=== PATIENT | female | born 1950 | race Caucasian/White ===

== ENCOUNTER 2020-03-28 07:05 | Outpatient (REF) | payer MEDICARE, OTHER, SELFPAY ==
[2020-03-28 07:35] VITALS: BMI 29.8
[2020-03-28 07:38] VITALS: BP 141/61; PULSE 94; RESP 16; TEMP 37.2; O2SAT 95
[2020-03-28 10:04] VITALS: BP 150/86; PULSE 94; RESP 16; O2SAT 94
--- NOTE | 2020-03-28 12:52 | P.OP_ITS ---
Operative Note Operative Note Narrative: Preoperative diagnosis: Lesions of upper back and chest wall Postoperative diagnosis: Same Procedure: Excision of lesions of upper back and chest wall Anesthesia: Local 1% lidocaine with epinephrine 9 cc Specimens: Lesions of upper back and of chest wall Estimated blood loss: Less than 5 cc Immediate complications: None Indications: This is a 69-year-old female who has developed symptomatic lesions on her upper mid back and left infraclavicular areas. The lesions are itchy and irritated. Their appearance is indeterminate and excision is planned. Procedure in detail: The patient initially in the prone position, time-out procedure was performed. The area of the lesion on the upper back was prepped with Betadine solution and was draped sterilely. an elliptical incision was made with the long axis oriented vertically. The incision was carried down into the subcutaneous tissues. A margin of normal-appearing skin was taken along with the lesion. Lesion was amputated at the level of the subcutaneous tissues. Bleeding was controlled with subcutaneous sutures of 3 0 Polysorb and skin was closed with interrupted sutures of for O nylon. The area was cleansed with saline solution and a light gauze dressing was applied. She then moved to the supine position. The lesion of the chest wall in the left infraclavicular area and the surrounding skin were prepped with Betadine solution and were draped sterilely. Incision lines were marked on the skin encircling the lesion with a margin of normal-appearing skin. Skin and subcutaneous tissues were infiltrated with local anesthetic. An incision was made and was carried into the subcutaneous tissues where the lesion was excised. The wound was closed with interrupted subcuticular sutures of 4 0 Polysorb. Half-inch Steri-Strips and a light adhesive dressing were applied. She immanuel ated the procedure well. She will keep the areas dry and covered for 24 hours, will use acetaminophen as needed for pain, and will follow up in the office for wound check and suture removal in about 1 week.
== END 2020-03-28 07:06 | disposition home or self-care (01) ==
LOC: HO.MS 07:05
PROVIDERS: PCP Internal Medicine; Visit Provider Surgery
DX: L57.0 Actinic keratosis (principal); L98.9 Disorder of the skin and subcutaneous tissue, unspecified
CPT/HCPCS: 11403; 12032; 11401; 88304

== ENCOUNTER → 2020-04-04 09:36 | Outpatient (BNVA) | payer MEDICARE, OTHER, SELFPAY | PROVIDERS: PCP Internal Medicine; Visit Provider Surgery | DX: Z09 Encounter for follow-up examination after completed treatment for conditions other than malignant neoplasm (principal); L82.0 Inflamed seborrheic keratosis | CPT/HCPCS: 99212 ==

== ENCOUNTER → 2020-04-25 10:13 | Outpatient (BNVA) | payer MEDICARE, OTHER, SELFPAY | PROVIDERS: PCP Internal Medicine; Referring Provider Internal Medicine; Visit Provider Surgery | DX: T81.89XA Other complications of procedures, not elsewhere classified, initial encounter (principal) | CPT/HCPCS: 99212 ==

== ENCOUNTER 2020-11-14 06:33 | Outpatient (REF) | payer MEDICARE, OTHER, SELFPAY ==
[2020-11-14 11:59] LABS: Anion Gap 14 (12-20); Blood Urea Nitrogen 21 mg/dL (9-16); Calcium 9.6 mg/dL (8.4-10.2); Carbon Dioxide 27 mmol/L (22-29); Chloride 105 mmol/L (96-108); Cholesterol 203 mg/dL; Estimated Glomerular Filt Rate > 60; Glucose Fasting 88 mg/dL (60-99); HDL Cholesterol 52 mg/dL; LDL Cholesterol Calculated 127 mg/dl; Potassium 4.4 mmol/L (3.3-5.1); Sodium 142 mmol/L (135-145); Triglycerides 123 mg/dL
[2020-11-14 12:24] LABS: Vitamin D 25-OH Total 29.6 ng/mL (>30)
== END 2020-11-14 06:34 | disposition home or self-care (01) ==
LOC: HO.HMGCLDS 06:33
PROVIDERS: PCP Internal Medicine; Visit Provider Internal Medicine
DX: I10 Essential (primary) hypertension (principal); M85.89 Other specified disorders of bone density and structure, multiple sites; Z78.0 Asymptomatic menopausal state
CPT/HCPCS: 36415; 80048; 80061; 82306

== ENCOUNTER 2020-11-19 08:03 | Outpatient (REF) | payer MEDICARE, OTHER, SELFPAY ==
--- NOTE | ~2020-11-19 | MM_ITS ---
EXAMINATION: BONE DENSITOMETRY CLINICAL INDICATION: Postmenopausal. COMPARISON: Previous BD dated 11/24/2018 and baseline BD dated 09/07/2006. TECHNIQUE: Using a [employer] DXA System (software version: 13.1) manufactured by [facility], dual-energy x-ray absorptiometry was performed of the lumbar spine and left hip. The images are of good technical quality. Summary results are attached. FINDINGS: AP SPINE L1-L4: Current: BMD 1.122 g/cm2, Z-score 0.3, T-score -0.5, normal, 6.6% increase from previous, 8.1% increase from baseline (<5% change is not significant). Prior: BMD 1.053 g/cm2. Baseline: BMD 1.038 g/cm2. LEFT FEMUR, NECK: Current: BMD 0.751 g/cm2, Z-score -1.0, T-score -2.1, osteopenia. Prior: BMD 0.796 g/cm2. Baseline: BMD 0.858 g/cm2. LEFT FEMUR, TOTAL: Current: BMD 0.764 g/cm2, Z-score -1.2, T-score -1.9, osteopenia, 4.1% decrease from previous, 13.1% decrease from baseline (<5% change is not significant). Prior: BMD 0.797 g/cm2. Baseline: BMD 0.879 g/cm2. IDENTIFIED RISK FACTORS: Menopause, history of fracture (adult). HISTORY OF FRACTURE: Wrist. Fibula. MEDICATIONS: Calcium supplements or multivitamin, vitamin D. MM/XR DEXA axial skeleton IMPRESSION: 1. DIAGNOSIS: Osteopenia based on the lowest T-score value of -2.1 in the femoral neck applying World Health Organization criteria. 2. 10-YEAR FRACTURE RISK PREDICTION, FRAX: Major osteoporotic fracture (clinical spine, forearm, hip or shoulder) 18.4%. Hip fracture 3.2%. 3. Treatment Recommendations: NOF guidelines recommend consideration for treatment in postmenopausal women and men age 50 and older presenting with the following: -A hip or vertebral (clinical or morphometric) fracture. -T-score less than or equal to -2.5 at the femoral neck or spine after appropriate evaluation to exclude secondary causes. -Low bone mass at the hip or spine and a 10-year fracture probability by FRAX of greater than or equal to 3% for hip fracture or greater than or equal to 20% for major osteoporotic fracture based on the [place] adapted WHO algorithm. 4. Other Recommendations: All treatment decisions require clinical judgment and consideration of individual patient factors, including patient preferences, comorbidities, previous drug use, risk factors not captured in the FRAX model (e.g. frailty, falls, vitamin D deficiency, increased bone turnover, interval significant decline in bone density) and possible under or overestimation of fracture risk by FRAX. Additional medical evaluation for secondary cause of low bone mineral density may be appropriate. FUTURE SCAN RECOMMENDATION: People with diagnosed cases of osteoporosis or at high risk for fracture should have regular bone mineral density tests. For patients eligible for Medicare, routine testing is allowed once every 2 years. The testing frequency can be increased to one year for patients who have rapidly progressing disease, those who are receiving or discontinuing medical therapy to restore bone mass, or have additional risk factors.
== END 2020-11-19 08:04 | disposition home or self-care (01) ==
LOC: HO.MAMMO 08:03
PROVIDERS: Visit Provider Obstetrics & Gynecology
DX: Z13.820 Encounter for screening for osteoporosis (principal); Z78.0 Asymptomatic menopausal state
CPT/HCPCS: 77080

== ENCOUNTER 2021-09-16 07:48 | Day surgery (SDC) | payer MEDICARE, OTHER, SELFPAY ==
[2021-09-10 13:34] VITALS: BMI 29.5
--- NOTE | 2021-09-15 10:13 | P.CONAN_ITS ---
Documented by User: Nneka Barboza NP 09/15/21 10:19 HPI - Anesthesia Eval Consult details Narrative: 70yo F for Colonoscopy PMFSH Active Problems Active Problems: All Active Problems (Updated 09/10/21 @ 13:30 by Concepcion Vázquez, RN) History of malignant neoplasm of both breasts (Acute) Essential hypertension (Acute) Tubular adenoma of colon (Acute) Osteoarthritis of knee (Acute) Osteopenia of multiple sites (Acute) Past Medical History Medical History (Updated 09/10/21 @ 13:30 by Concepcion Vázquez, RN) Breast cancer screening by mammogram Essential hypertension Fracture of right fibula History of malignant neoplasm of both breasts Hx of supraventricular tachycardia Infiltrating ductal carcinoma of left breast Invasive lobular carcinoma of right breast in female Osteoarthritis of knee Osteopenia of multiple sites PONV (postoperative nausea and vomiting) Routine Papanicolaou smear Tubular adenoma of colon Family History Family History Father Cancer of prostate Mother COPD (chronic obstructive pulmonary disease) Sister Breast cancer Paternal Grandmother Breast cancer Brother No problems noted. Sister No problems noted. Son No problems noted. Daughter No problems noted. Surgical History Surgical History (Updated 09/10/21 @ 13:22 by Concepcion Vázquez RN) History of lumpectomy of left breast History of lumpectomy of right breast History of lymph node dissection of left axilla History of lymph node excision Hx of colonoscopy Social History Social History Are you a primary career technical education teacher to a significant other at home: No Do you presently have visiting nurse or other home services: No Alcohol intake: never Patient Tobacco Use Status: Never used Tobacco Use of substances other than those prescribed or required for medical reasons: No Have you been hit, kicked, punched, or otherwise hurt by someone within the past year? If so, by whom?: No Are you DNR?: No Advance Directives: Yes Advance Directives Information Provided: No Advance Directives on File: Yes Advance Directives Date on File: 03/28/20 Recently lost weight without trying: No Eating poorly because of decreased appetite: No Nutrition Risks: No Nutritional Risk Meds Allergies Allergy/AdvReac Type Severity Reaction Status Date / Time oxycodone [Percocet] AdvReac Unknown nausea Verified 09/10/21 13:18 demerol AdvReac Unknown nausea Uncoded 09/10/21 13:18 Home Medications Medication Instructions Recorded Confirmed Last Taken Type calcium carbonate 600 mg-vitamin 1 tab PO DAILY 06/24/20 09/10/21 Unknown History D3 20 mcg (800 unit) chewable tablet (Caltrate 600 plus D) multivitamin 1 tab PO DAILY 06/24/20 09/10/21 Unknown History Exam Exam Date and Time: September 15, 2021 1013 Height,Weight and Vital Signs: Height 5 ft 9 in Weight 90.718 kg Assessment and Plan Assessment Anesthesia Assessment: Chart Reviewed Documented by User: Iris Smith MD 09/16/21 09:14 [facility] Past Medical History Medical History (Updated 09/10/21 @ 13:30 by Concepcion Vázquez, KAILYN) Breast cancer screening by mammogram Essential hypertension Fracture of right fibula History of malignant neoplasm of both breasts Hx of supraventricular tachycardia Infiltrating ductal carcinoma of left breast Invasive lobular carcinoma of right breast in female Osteoarthritis of knee Osteopenia of multiple sites PONV (postoperative nausea and vomiting) Routine Papanicolaou smear Tubular adenoma of colon Family History Family History Father Cancer of prostate Mother COPD (chronic obstructive pulmonary disease) Sister Breast cancer Paternal Grandmother Breast cancer Brother No problems noted. Sister No problems noted. Son No problems noted. Daughter No problems noted. Family history of problems with anesthesia: No Surgical History Surgical History (Updated 09/10/21 @ 13:22 by Concepcion Vázquez, RN) History of lumpectomy of left breast History of lumpectomy of right breast History of lymph node dissection of left axilla History of lymph node excision Hx of colonoscopy History of Problems with Anesthesia: No Social History Social History Are you a primary career technical education teacher to a significant other at home: No Do you presently have visiting nurse or other home services: No Alcohol intake: never Patient Tobacco Use Status: Never used Tobacco Use of substances other than those prescribed or required for medical reasons: No Have you been hit, kicked, punched, or otherwise hurt by someone within the past year? If so, by whom?: No Are you DNR?: No Advance Directives: Yes Advance Directives Information Provided: No Advance Directives on File: Yes Advance Directives Date on File: 03/28/20 Recently lost weight without trying: No Eating poorly because of decreased appetite: No Nutrition Risks: No Nutritional Risk Meds Allergies Allergy/AdvReac Type Severity Reaction Status Date / Time oxycodone [Percocet] AdvReac Unknown nausea Verified 09/10/21 13:18 demerol AdvReac Unknown nausea Uncoded 09/10/21 13:18 Home Medications Medication Instructions Recorded Confirmed Last Taken Type calcium carbonate 600 mg-vitamin 1 tab PO DAILY 06/24/20 09/10/21 Unknown History D3 20 mcg (800 unit) chewable tablet (Caltrate 600 plus D) multivitamin 1 tab PO DAILY 06/24/20 09/10/21 Unknown History Exam Airway Mallampati Class: II TM Dist: >3cm Neck ROM: Full Assessment and Plan Final Anesthetic Review Family History of Problems with Anesthesia: No History of Problems with Anesthesia: No NPO: Yes ASA Class: II Final Preanesthetic Review: No Changes in Pt Med Stat, Meds/Allgs Chart Reviewed, Consent Obtained/Reviewed and Anes Risks/Benef Reviewed Patient Risk: Low Procedure Risk: Low Anesthetic Plan Anesthetic Plan: MAC: Disposition: Standard PACU
[2021-09-16 07:59] VITALS: BP 143/83; PULSE 87; RESP 16; TEMP 36.4; O2SAT 96; BMI 29.5
--- NOTE | 2021-09-16 09:14 | MHC.SHP ---
Pre-Procedural Eval Section A Date of Service: 09/16/21 Section B Chief Complaint: Screening Details of Present Illness: screening, fhx polyps Relevant Family History (Specify if Yes): Yes Relevant Social History: None Present Medications: None Medical History: Significant History (see h and p no changes) History of Previous Operations: No relevant previous surgery Allergies: Allergies Allergy/AdvReac Type Severity Reaction Status Date / Time oxycodone [Percocet] AdvReac Unknown nausea Verified 09/10/21 13:18 demerol AdvReac Unknown nausea Uncoded 09/10/21 13:18 Review of Systems Sugical H&P ROS: Negative: Constitution, Cardiovascular, Respiratory, Neurological, Psychiatric, Hem-Onc, Allergic/Immunologic, Gastrointestinal, Genitourinary, Musculoskeletal, Integumentary, Endocrine and Eyes/Ears/Nose/Throat Exam Surgical H&P Exam: Normal: HEENT, Normal: Heart, Normal: Lungs, Normal: Extremities, Normal: Abdomen, Normal: Skin and Normal: Neurological Plan I have reviewed the history and physical and performed a pertinent physical examination on my patient. No changes have occurred unless specified.
[2021-09-16] MEDS: Scopolamine 1.5 MG PATCH.TD.3 EAR-BEHIND (09:18)
[2021-09-16] MEDS: Lactated Ringers 1,000 ML 100 ML IVCONT (09:19)
--- NOTE | 2021-09-16 09:52 | P.BOP_ITS ---
Brief Operative Note Date of Service: 09/16/21 Pre-op diagnosis: screening Post-op diagnosis: same (colon polyps) Procedure: colonosocpy Surgeon: Jozef Leija Anesthesia: MAC Was an Otr Owner Operator used for this Procedure?: No Estimated blood loss (mL): 5 Pathology: other (see path req) Condition: stable Disposition: PACU
[2021-09-16 09:55] VITALS: BP 95/48; PULSE 82; RESP 14; TEMP 36.6; O2SAT 96
[2021-09-16 10:10] VITALS: BP 133/61; PULSE 84; RESP 20; TEMP 36.1; O2SAT 97
--- NOTE | 2021-09-16 10:44 | OP_ITS ---
SURGEON: Jozef Leija MD INDICATIONS: Colon cancer screening and prior history of adenomatous colon polyps. PREOPERATIVE DIAGNOSIS: POSTOPERATIVE DIAGNOSIS: PROCEDURE PERFORMED: ESTIMATED BLOOD LOSS: COMPLICATIONS: ANESTHESIA: ASSISTANTS: SPECIMENS: PROCEDURE: Colonoscopy to the terminal ileum with biopsy and snare polypectomy. MEDICATIONS: Monitored anesthesia care. DESCRIPTION OF PROCEDURE: History and physical performed. The risks and benefits of the procedure were explained to the patient. Informed consent was obtained. The patient was placed in left lateral decubitus position. A digital rectal exam was performed and was found to be normal. The Olympus pediatric videocolonoscope was introduced into the rectum and advanced to the cecum without difficulty. The cecum was identified by transillumination, palpation, and identification of ileocecal valve. Examination was performed. The scope was removed. She tolerated the procedure well and was taken to recovery area in stable condition. FINDINGS: The terminal ileum was normal. Visualized colonic mucosa was normal. In the cecum, there was a less than 5 mm sessile polyp, which was removed with biopsy forceps. At 40 cm, was a less than 10 mm polyp, which was snared. Two polyps at 20 cm were removed, 1 with biopsy forceps and 1 with a cold snare. All measured less than 10 mm. The ileocecal valve appeared somewhat prominent and biopsies were obtained. No definite polyp was identified at the level of the ileocecal valve. Retroflexed examination showed moderate-sized internal hemorrhoids. The quality of the prep was good. IMPRESSION: Colon polyps. RECOMMENDATION: Follow up biopsy results. MD MAULIK Diamond/MODL / [id number] MTDD
== END 2021-09-16 10:26 | disposition home or self-care (01) ==
PROVIDERS: PCP Internal Medicine; Visit Provider Internal Medicine Gastroenterology
PROC: 0DJD8ZZ Inspection of Lower Intestinal Tract, Via Natural or Artificial Opening Endoscopic (ICD-10-PCS; CPT 45378; principal; 2021-09-16 08:50)
DX: Z12.11 Encounter for screening for malignant neoplasm of colon (principal); Z86.010 Personal history of colon polyps; D12.0 Benign neoplasm of cecum; K63.5 Polyp of colon; K64.8 Other hemorrhoids; K21.9 Gastro-esophageal reflux disease without esophagitis; I10 Essential (primary) hypertension; M85.80 Other specified disorders of bone density and structure, unspecified site; Z79.1 Long term (current) use of non-steroidal anti-inflammatories (NSAID); Z79.899 Other long term (current) drug therapy; Z85.3 Personal history of malignant neoplasm of breast; Z88.8 Allergy status to other drugs, medicaments and biological substances
CPT/HCPCS: 45385; 45380; 88305

== ENCOUNTER 2021-10-30 06:28 | Outpatient (REF) | payer MEDICARE, OTHER, SELFPAY ==
[2021-10-30 11:37] LABS: Alanine Aminotransferase 18 U/L (0-31); Anion Gap 13 (12-20); Aspartate Amino Transferase 16 U/L (5-31); Blood Urea Nitrogen 17 mg/dL (9-16); Calcium 9.6 mg/dL (8.4-10.2); Carbon Dioxide 26 mmol/L (22-29); Chloride 108 mmol/L (96-108); Cholesterol 195 mg/dL; Estimated Glomerular Filt Rate > 60; Glucose Fasting 112 mg/dL (60-99); HDL Cholesterol 47 mg/dL; LDL Cholesterol Calculated 129 mg/dl; Potassium 4.5 mmol/L (3.3-5.1); Sodium 142 mmol/L (135-145); Triglycerides 99 mg/dL
== END 2021-10-30 06:29 | disposition home or self-care (01) ==
LOC: HO.HMGCLDS 06:28
PROVIDERS: Visit Provider Internal Medicine
DX: I10 Essential (primary) hypertension (principal); M85.89 Other specified disorders of bone density and structure, multiple sites; N95.9 Unspecified menopausal and perimenopausal disorder; Z86.39 Personal history of other endocrine, nutritional and metabolic disease
CPT/HCPCS: 36415; 80048; 80061; 82306; 84450; 84460

== ENCOUNTER 2022-10-30 06:54 | Outpatient (REF) | payer BC, SELFPAY ==
[2022-10-30 12:01] LABS: Alanine Aminotransferase 12 U/L (0-31); Aspartate Amino Transferase 14 U/L (5-31); Cholesterol 194 mg/dL; HDL Cholesterol 49 mg/dL; LDL Cholesterol Calculated 118 mg/dl; Triglycerides 135 mg/dL
[2022-10-30 12:18] LABS: Vitamin D 25-OH Total 42.9 ng/mL (>30)
== END 2022-10-30 06:55 | disposition home or self-care (01) ==
LOC: HO.HMGCLDS 06:54
PROVIDERS: PCP Internal Medicine; Visit Provider Internal Medicine
DX: I10 Essential (primary) hypertension (principal); M85.89 Other specified disorders of bone density and structure, multiple sites; N95.9 Unspecified menopausal and perimenopausal disorder; Z86.39 Personal history of other endocrine, nutritional and metabolic disease
CPT/HCPCS: 36415; 80061; 82306; 84450; 84460

== ENCOUNTER 2022-11-20 08:30 | Outpatient (REF) | payer BC, SELFPAY ==
--- NOTE | ~2022-11-20 | MM_ITS ---
EXAMINATION: BONE DENSITOMETRY CLINICAL INDICATION: Postmenopausal. COMPARISON: Previous BD dated 11/05/2016 and baseline BD dated 09/07/2006. TECHNIQUE: Using a [employer] DXA System (software version: 13.1) manufactured by [employer], dual-energy x-ray absorptiometry was performed of the lumbar spine and right hip. The images are of good technical quality. Summary results are attached. FINDINGS: AP SPINE L1-L4: Current: BMD 1.088 g/cm2, Z-score 0.0, T-score -0.8, normal, 3.0% decrease from previous, 4.8% increase from baseline (<5% change is not significant). Prior 11/19/2020: BMD 1.122 g/cm2. Baseline: BMD 1.038 g/cm2. RIGHT FEMUR, NECK: Current: BMD 0.682 g/cm2, Z-score -1.4, T-score -2.6, osteoporosis. Prior: BMD 0.767 g/cm2. Baseline: BMD 0.775 g/cm2. RIGHT FEMUR, TOTAL: Current: BMD 0.770 g/cm2, Z-score -1.0, T-score -1.9, osteopenia, 0.9% increase from previous, 7.7% decrease from baseline (<5% change is not significant). Prior: BMD 0.763 g/cm2. Baseline: BMD 0.834 g/cm2. IDENTIFIED RISK FACTORS: Menopause, history of fracture (adult). HISTORY OF FRACTURE: Wrist, tibia. MEDICATIONS: Calcium, vitamin D. MM/XR DEXA axial skeleton IMPRESSION: 1. DIAGNOSIS: Osteoporosis based on the lowest T-score value of -2.6 in the femoral neck applying World Health Organization criteria. 2. 10-YEAR FRACTURE RISK PREDICTION, FRAX: According to the guidelines, FRAX calculation should only be performed on patients in the osteopenia bone density category. Therefore, FRAX was not performed on this patient. 3. Treatment Recommendations: NOF guidelines recommend consideration for treatment in postmenopausal women and men age 50 and older presenting with the following: -A hip or vertebral (clinical or morphometric) fracture. -T-score less than or equal to -2.5 at the femoral neck or spine after appropriate evaluation to exclude secondary causes. -Low bone mass at the hip or spine and a 10-year fracture probability by FRAX of greater than or equal to 3% for hip fracture or greater than or equal to 20% for major osteoporotic fracture based on the [place] adapted WHO algorithm. 4. Other Recommendations: All treatment decisions require clinical judgment and consideration of individual patient factors, including patient preferences, comorbidities, previous drug use, risk factors not captured in the FRAX model (e.g. frailty, falls, vitamin D deficiency, increased bone turnover, interval significant decline in bone density) and possible under or overestimation of fracture risk by FRAX. Additional medical evaluation for secondary cause of low bone mineral density may be appropriate. FUTURE SCAN RECOMMENDATION: People with diagnosed cases of osteoporosis or at high risk for fracture should have regular bone mineral density tests. For patients eligible for Medicare, routine testing is allowed once every 2 years. The testing frequency can be increased to one year for patients who have rapidly progressing disease, those who are receiving or discontinuing medical therapy to restore bone mass, or have additional risk factors.
== END 2022-11-20 08:31 | disposition home or self-care (01) ==
LOC: HO.MAMMO 08:30
PROVIDERS: PCP Internal Medicine; Visit Provider Obstetrics & Gynecology
DX: Z13.820 Encounter for screening for osteoporosis (principal); Z78.0 Asymptomatic menopausal state; M85.80 Other specified disorders of bone density and structure, unspecified site
CPT/HCPCS: 77080

== ENCOUNTER 2023-01-08 13:46 | Outpatient (AMB) | payer BC, SELFPAY ==
--- NOTE | 2023-01-08 13:43 | A.OFFPC_ITS ---
Intake Visit Reasons: discuss fosamax I phone [phone] ok 2pm Intake Note: Ptis having a telehealth visit to discuss rx for fosamax Allergies oxycodone [Percocet] Adverse Reaction (Unknown, Verified 01/08/23 14:40) nausea demerol Adverse Reaction (Unknown, Uncoded 01/08/23 14:40) nausea Medication List - Last Reconciled 01/08/23 by Kymberly Sanchez MD atenolol 25 mg PO DAILY calcium carbonate-vitamin D3 600 mg-20 mcg (800 unit) (Caltrate 600 plus D) 1 tab PO DAILY cholecalciferol (vitamin D3) 50 mcg PO DAILY ibuprofen 800 mg PO BID PRN Tobacco use date assessed: 01/08/23 Fall risk assessment: No Falls in past year Last assessed Fall Risk: 01/08/23 Dental Screening Dental Screen Date: 01/08/23 Did you have a dental visit in the last 12 months?: Yes Did you have a dental problem in the last 6 months where you did not have access to dental care?: No Was dental information given to patient?: Patient has dentist HPI discuss fosamax I phone [phone] ok 2pm HPI Details 72-year-old lady with history of hypertension history of breast cancer bilateral, osteoarthritis and history of fibular fracture in 2014, here today to discuss results of recent bone density scan. Which showed normal bone density in her lumbar spine, and presence of osteoporosis in right femur neck with a T- score of -2.6, and osteopenia in right total femur with a T-score of -1.9. She had discussed results also with her OBGYN Dr. Ornelas who states that patient may or may no start definitive treatment at present time, patient is also has an since starting any medications, and would like to just continue with lifestyle modification and taking her supplements as directed. [facility] Medical History (Updated 01/08/23 @ 17:00 by Kymberly Sanchez MD) Breast cancer screening by mammogram Essential hypertension Fracture of right fibula History of malignant neoplasm of both breasts History of vitamin D deficiency Hx of supraventricular tachycardia Infiltrating ductal carcinoma of left breast Invasive lobular carcinoma of right breast in female Osteoarthritis of left hip Osteopenia of multiple sites Osteoporosis PONV (postoperative nausea and vomiting) Routine Papanicolaou smear Tinnitus of right ear Tubular adenoma of colon Surgical History History of lumpectomy of left breast History of lumpectomy of right breast History of lymph node dissection of left axilla History of lymph node excision Hx of colonoscopy S/P total left hip arthroplasty Family History Father Cancer of prostate Mother COPD (chronic obstructive pulmonary disease) Sister Breast cancer Paternal Grandmother Breast cancer Brother No problems noted. Sister No problems noted. Son No problems noted. Daughter No problems noted. Social History Housing: House Are you a primary insurance healthcare consultant to a significant other at home: No Do you presently have visiting nurse or other home services: No Alcohol intake: never Patient Tobacco Use Status: Never used Tobacco e-Cigarette/Vaping Use: Never Used Advance Directives Date on File: 03/28/20 Current occupational status: retired Cognitive needs: No Hearing needs: No Vision needs: No Questionnaire Thrive Questionnaire Date Thrive assessed: 10/26/22 TONY-7 AMB Questionnaire TONY-7 Date TONY - 7 assessed: 10/26/22 Source: Developed by Drs. Jake Christianson, Michelle Lundy, Hipolito Aguiar and colleagues, with an educational rai from [employer] Review of Systems Const All systems reviewed & are unremarkable except as noted in HPI and below Physical exam (Primary Care) Tobacco/Smoking Status: Tobacco use Status Tobacco use date assessed 01/08/23 01/08/23 13:45 Patient Tobacco Use Status Never used Tobacco 01/08/23 13:45 e-Cigarette/Vaping Use Never Used 01/08/23 13:45 Thrive Assessment: Date of Thrive Assessment Date Thrive assessed 10/26/22 01/08/23 13:45 Telehealth Telehealth Location of provider rendering services: practice address Location of patient: address on file Patient Identification confirmed using: Name, : Yes Telehealth method: video Patient verbally consented to treatment: Yes Patient verbally consented to billing insurance company: Yes Patient informed of any privacy concerns related to visit: Yes Minutes spent on Phone/Video with Pt.: 15 Assessment and Plan Assessment & Plan (1) Osteoporosis: Code(s): M81.0 - Age-related osteoporosis without current pathological fracture Plan: Patient opts to hold off on getting any medication at present time, in the meantime will just continue taking her calcium and vitamin-D 3 supplements. Advised to start doing regular weight-bearing exercises to prevent further bone loss, and will repeat another bone density scan in 2 years Coding Level of Care Code Tele Est Pt Level 3 (79940) Diagnoses Osteoporosis M81.0
== END 2023-01-08 17:00 | disposition home or self-care (01) ==
LOC: HO.HMGC 13:46
PROVIDERS: PCP Internal Medicine; Visit Provider Internal Medicine
DX: M81.0 Age-related osteoporosis without current pathological fracture (principal)
CPT/HCPCS: 99213

== ENCOUNTER 2023-05-12 08:41 | Outpatient (AMB) | payer BC, SELFPAY ==
--- NOTE | 2023-05-12 08:43 | A.OFFVIS_ITS ---
Intake Vital Signs 05/12/23 08:46 Height 5 ft 9 in Weight 207 lb 2 oz BMI 30.6 BP 140/86 H Blood Pressure Location Rt brachial Position Sitting Pulse 84 Pulse Source Pulse Oximeter Pulse Oximetry (%) 95 Oxygen Delivery Method Room Air Intake Visit Reasons: SAWV [id number] Allergies oxycodone [Percocet] Adverse Reaction (Unknown, Verified 05/12/23 14:37) nausea demerol Adverse Reaction (Unknown, Uncoded 05/12/23 14:37) nausea Medication List - Last Reconciled 05/12/23 by Kymberly Sanchez MD acetaminophen ER (Tylenol Arthritis Pain) 650 mg PO Q8H PRN atenolol 25 mg PO DAILY calcium carbonate-vitamin D3 600 mg-20 mcg (800 unit) (Caltrate 600 plus D) 1 tab PO DAILY cholecalciferol (vitamin D3) 50 mcg PO DAILY HPI SAWV [id number] HPI Details SWV ? 72-year-old lady with history of bilateral breast cancers status post radiotherapy, has hypertension, history of tubular adenoma of colon, and osteopenia in her right femoral neck and right femur, presents today for her subsequent annual wellness visit . She is up-to-date with her screening mammogram done 05/07/2022 at [facility], due again this year. She goes to Dr. Diaz for routine Pap and pelvic exam, last Pap smear was done 09/17/2020 with negative findings. Last bone density scan was done , ordered by Dr. Ornelas, 11/20/2022 which showed normal bone density lumbar spine and osteoporosis in right femoral neck and right femur. She had her last colonoscopy done 09/16/[address] Leija with removal of tubular adenoma, due for recheck in 2026 . She had a normal fasting lipid panel and fasting sugar check done 10/30/2022 She is up-to-date with her flu shot, COVID boosters, pneumonia vaccine and Shingrix vaccination. Does not want to get the RSV vaccine ? Medical / Social History Reviewed? Past Medical History ?Yes . ? [place] of Care / Care Team list updated ?Yes . ? Surgical/Hospitalization History ?Yes . ? Current Medications (including OTC and supplements) ?Yes . ? Family History ?Yes . ? Tobacco Control form ?Yes . ? AUDIT-C (Alcohol use) form ?Yes . ? Illicit drug use in Social History ?Yes . ? Current diagnosis of depression? ?No ? Appropriate PHQ2/PHQ9 completed ?Yes . ? Data entered by ?Fiscal Technician and reviewed by provider ? Fall Risk ? Fall History? Have you had any falls with injury in the past year? ?No . ? Have you had two or more falls in the past year? ?No . ? Fall Risk Assessment: ?No falls in the past year . ? HRA filled out by the patient, reviewed by Provider and scanned. ? IPPE/AWV ? Balance? Romberg ?Yes . ? Tandem walk ?Yes . ? Walk and Turn ?Yes . ? Rise from sit to stand ?Yes . ?Vision? Corrective lens ?not ? Vision screen ? Up-to-date, goes to [facility], has beginning cataracts ?Hearing? Whisper test ?pass . ?Written Plan?Completed. See Patient Documents.? [facility] Medical History (Updated 07/05/23 @ 05:31 by Kymberly Sanchez MD) Osteoporosis History of vitamin D deficiency Tinnitus of right ear Osteoarthritis of left hip PONV (postoperative nausea and vomiting) Hx of supraventricular tachycardia Essential hypertension Breast cancer screening by mammogram Routine Papanicolaou smear Tubular adenoma of colon Fracture of right fibula Invasive lobular carcinoma of right breast in female Infiltrating ductal carcinoma of left breast History of malignant neoplasm of both breasts Surgical History S/P total left hip arthroplasty Hx of colonoscopy History of lymph node dissection of left axilla History of lymph node excision History of lumpectomy of left breast History of lumpectomy of right breast Family History Father Cancer of prostate Mother COPD (chronic obstructive pulmonary disease) Sister Breast cancer Paternal Grandmother Breast cancer Brother No problems noted. Sister No problems noted. Son No problems noted. Daughter No problems noted. Social History Housing: House Are you a primary career technology teacher to a significant other at home: No Do you presently have visiting nurse or other home services: No Alcohol intake: never Patient Tobacco Use Status: Never used Tobacco e-Cigarette/Vaping Use: Never Used Advance Directives Date on File: 03/28/20 Current occupational status: retired Cognitive needs: No Hearing needs: No Vision needs: No Questionnaire Medicare Wellness Checkup [age] What gender do you identify with?: female During the past 4 weeks, how much have you been bothered by emotional problems such as feeling anxious, depressed, irritable, sad or downhearted, and blue?: not at all During the past 4 weeks, has your physical & emotional health limited your social activities with family, friends, neighbors, or groups?: not at all During the past 4 weeks, how much bodily pain have you generally had?: very mild pain During the past 4 weeks, was someone available to help you if you needed & wanted help?: yes, as much as I wanted During the past 4 weeks, what was the hardest physical activity you could do for at least 2 minutes?: heavy Can you get to places out of walking distance without help? (For eg., can you travel alone on buses, taxis or drive your car?): Yes Can you go shopping for groceries or clothes without someone's help?: Yes Can you prepare your own meals?: Yes Can you do your housework without help?: Yes Because of any health problems, do you need the help of another person with your personal care needs such as eating, bathing, dressing or getting around the house?: No Can you handle your own money without help?: Yes During the past 4 weeks, how would you rate your health in general?: very good During the past 4 weeks how have things been going for you?: very well; could hardly better Are you having difficulties driving your car?: no Do you always fasten your seat belt when you are in a car?: yes, usually During past 4 weeks, have you been bothered by the following: never: Falling or dizzy when standing up, Sexual problems?, Trouble eating well?, Teeth or denture problems?, Problems using the telephone? and Tiredness or fatigue? Have you fallen 2 or more times in the past year?: No Are you afraid of falling?: No Are you a smoker?: no During the past 4 weeks, how many drinks of wine, beer, or other alcoholic beverages did you have?: no alcohol at all Do you exercise for about 20 minutes 3 or more times a week?: yes, some of the time Have you been given information to help with the following?: yes: Hazards in your house that might hurt you? and yes: Keeping track of your medications? How often do you have trouble taking medicines the way you have been told to take them?: I always take medicine as prescribed How confident are you that you can control & manage most of your health problems?: very confident What is your race?: White Mini Mental State Exam (MMSE) Orientation What is the (year) (season) (date) (day) (month)?: year (2022), season (Fall), date (05/12/2023), day (Wednesday) and month (May) Where are we (state) (county) (town or city) (hospital) (floor)?: state ([place]), county ([place]), town or city ([place]) and hospital/clinic ([facility]) Score Score: 9 Activity of Daily Living Bathing - sponge bath, tub bath or shower: receives no assistance (gets in/out by self, if usual bathing means Dressing - getting clothes from closets & drawers, including inner/outer garments & fasteners.: gets clothes & gets completely dressed without help Toileting - going to the 'toilet room' for urine/bowel elimination & cleaning self/arranging clothes: goes to toilet room, cleans self, arranges clothes without help Transfer: moves in & out of bed and chair without help (may use support object) Continence: controls urination/bowel movements completely by self Feeding: feeds self without help Total Score: 0 Information obtained from: patient Using telephone: independent Traveling: independent Shopping: independent Preparing meals: independent Housework: independent Taking medicine: independent Managing money: independent PHQ-9 Over the last 2 weeks, how often have you been bothered by any of the following problems? 1. Little interest or pleasure in doing things: not at all 2. Feeling down, depressed, or hopeless: not at all 3. Trouble falling or staying asleep, or sleeping too much: not at all 4. Feeling tired or having little energy: not at all 5. Poor appetite or overeating: not at all 6. Feeling bad about yourself - or that you are a failure or have let yourself or your family down: not at all 7. Trouble concentrating on things, such as reading the newspaper or watching television: not at all 8. Moving or speaking so slowly that other people could have noticed. Or the opposite - being so fidgety or restless that you have been moving around a lot more than usual: not at all 9. Thoughts that you would be better off or of hurting yourself in some way: not at all Total score: 0 Depression Screening Interpretation: Negative Depression Screening Done: Yes 95277 - PHQ-9 Billing: Yes Source: Developed by Drs. Jake Christianson, Michelle Lundy, Hipolito Aguiar and colleagues, with an educational rai from [employer]. Physical Exam Vital Signs: Last Vital Signs Pulse 84 05/12/23 08:46 BP 140/86 H 05/12/23 08:46 Pulse Ox 95 05/12/23 08:46 Oxygen Delivery Method Room Air 05/12/23 08:46 BMI result Body Mass Index 30.6 Assessment & Plan Assessment & Plan (1) Encounter for subsequent annual wellness visit (AWV) in Medicare patient: Code(s): Z00.00 - Encounter for general adult medical examination without abnormal findings Plan: Medical wellness checklist reviewed, discussed with patient and updated. Copy given back to her (2) Essential hypertension: Code(s): I10 - Essential (primary) hypertension Plan: Continue atenolol 25 mg daily (3) Tubular adenoma of colon: Comment: done by Dr. Wetzel 2016 showed presence of tubular adenoma, repeat in 5 yearsl repeat colonoscopy done by Dr. Leija 09/16/2021 again showed presence of a tubular adenoma and 2 hyperplastic polyps Code(s): D12.6 - Benign neoplasm of colon, unspecified Plan: Up-to-date with her screening colonoscopy due again in [address] Leija (4) Osteoporosis: Comment: 2022 bone density scan showed osteoporosis in right femur neck, ordered by Dr. Ornelas Code(s): M81.0 - Age-related osteoporosis without current pathological fracture Plan: Followed by a her OBGYN Dr. Ornelas . Currently on calcium and vitamin-D supplement Quality Reporting (2019) Depression/Bipolar (159/160/161/177) PHQ-9: Total score: 0 Coding Level of Care Code Medicare Subsequent (G0439) Diagnoses Encounter for subsequent annual wellness visit (AWV) in Medicare patient Z00.00 Essential hypertension I10 Tubular adenoma of colon D12.6 Osteoporosis M81.0 CPT Codes Advance Care Planning - Advance Care Planning discussion: On file, no changes ([id number]) Advance Care Planning - Time spent: 1-15 minutes, on File ([id number]) Advance Care Planning Advance Care Planning discussion: On file, no changes Date of discussion: 05/12/23 Who was present: patient Forms completed: Health Care Proxy and MOLST Time spent: 1-15 minutes, on File Actual minutes spent: 15
[2023-05-12 08:46] VITALS: BP 140/86; PULSE 84; O2SAT 95; BMI 30.6
== END 2023-05-12 09:46 | disposition home or self-care (01) ==
LOC: HO.HMGC 08:41
PROVIDERS: PCP Internal Medicine; Visit Provider Internal Medicine
DX: Z00.00 Encounter for general adult medical examination without abnormal findings (principal); I10 Essential (primary) hypertension; D12.6 Benign neoplasm of colon, unspecified; M81.0 Age-related osteoporosis without current pathological fracture
CPT/HCPCS: 1123F; G0439

== ENCOUNTER 2023-10-11 08:17 | Outpatient (AMB) | payer BC, SELFPAY ==
--- NOTE | 2023-10-11 08:13 | A.OFFPC_ITS ---
<Statement entered by Kymberly Sanchez MD - 10/11/24 15:30> This note has been administratively?closed. Vital Signs 10/11/23 08:28 Height 5 ft 9 in Weight 206 lb 4 oz BMI 30.5 BP 125/80 Blood Pressure Location Rt brachial Position Sitting Pulse 85 Pulse Source Pulse Oximeter Pulse Oximetry (%) 97 Oxygen Delivery Method Room Air Intake Visit Reasons: PE Intake Note: Pt is here today for her annual physical. Last mammogram 05/07/23 Last bone density 11/20/22 Last colonoscopy 09/16/21 Last flu shot 03/09/22 Allergies oxycodone [Percocet] Adverse Reaction (Unknown, Verified 10/11/23 08:30) nausea demerol Adverse Reaction (Unknown, Uncoded 05/12/23 14:37) nausea Tobacco use date assessed: 10/11/23 Fall risk assessment: No Falls in past year Last assessed Fall Risk: 10/11/23 Dental Screening Dental Screen Date: 10/11/23 Did you have a dental visit in the last 12 months?: Yes Did you have a dental problem in the last 6 months where you did not have access to dental care?: No Was dental information given to patient?: Patient has dentist [facility] Medical History (Updated 10/11/23 @ 09:26 by Kymberly Sanchez MD) Impaired fasting glucose Osteoporosis History of vitamin D deficiency Tinnitus of right ear Osteoarthritis of left hip PONV (postoperative nausea and vomiting) Hx of supraventricular tachycardia Essential hypertension Breast cancer screening by mammogram Routine Papanicolaou smear Tubular adenoma of colon Fracture of right fibula Invasive lobular carcinoma of right breast in female Infiltrating ductal carcinoma of left breast History of malignant neoplasm of both breasts Surgical History S/P total left hip arthroplasty Hx of colonoscopy History of lymph node dissection of left axilla History of lymph node excision History of lumpectomy of left breast History of lumpectomy of right breast Family History Father Cancer of prostate Mother COPD (chronic obstructive pulmonary disease) Sister Breast cancer Paternal Grandmother Breast cancer Brother No problems noted. Sister No problems noted. Son No problems noted. Daughter No problems noted. Social History Housing: House Are you a primary health care technician to a significant other at home: No Do you presently have visiting nurse or other home services: No Alcohol intake: never Patient Tobacco Use Status: Never used Tobacco e-Cigarette/Vaping Use: Never Used Advance Directives Date on File: 03/28/20 service: No Current occupational status: retired Cognitive needs: No Hearing needs: No Vision needs: No Questionnaire PHQ-9 Over the last 2 weeks, how often have you been bothered by any of the following problems? 73613 - PHQ-9 Billing: Patient declined-do not bill Source: Developed by Drs. Jake Christianson, Michelle Lundy, Hipolito Aguiar and colleagues, with an educational rai from [employer]. Thrive Questionnaire Date Thrive assessed: 10/11/23 I am a: Patient What is your living situation today?: I have a steady place to live Within the past 12 months, did the food you bought not last and you didn't have the money to get more?: Never true Within the past 12 months, did you worry whether your food would run out before you got money to buy more?: Never true Do you have trouble paying for medicines?: No Do you have trouble getting transportation to medical appointments?: No Do you have trouble paying your heating and electricity bill?: No Do you have trouble taking care of your child, family member or friend?: No Do you have trouble with day-to-day activities such as bathing, preparing meals, shopping, managing finances, etc.?: No Are you currently unemployed and looking for a job?: No Are you interested in more education?: No Please select the resources that you would like help with: None Currently or been in a relationship where the following occur: no concerns reported THRIVE Score: 0 AUDIT C Alcohol Use Questionnaire (AUDIT-C) 1. How often do you have a drink containing alcohol?: Never 3. How often do you have six or more drinks on one occasion?: Never Total Score: 0 Score Reviewed/Action Taken: Yes TONY-7 AMB Questionnaire TONY-7 Date TONY - 7 assessed: 10/11/23 Source: Developed by Michelle Munguia, Hipolito Aguiar and colleagues, with an educational rai from [employer] Review of Systems Eyes Details: sees [facility] Physical exam (Primary Care) Vital Signs: Last Vital Signs Pulse 85 10/11/23 08:28 BP 154/80 H 10/11/23 08:28 Pulse Ox 97 10/11/23 08:28 Oxygen Delivery Method Room Air 10/11/23 08:28 BMI result Body Mass Index 30.5 Tobacco/Smoking Status: Tobacco use Status Tobacco use date assessed 10/11/23 10/11/23 08:32 Patient Tobacco Use Status Never used Tobacco 10/11/23 08:13 e-Cigarette/Vaping Use Never Used 10/11/23 08:13 Thrive Assessment: Date of Thrive Assessment Date Thrive assessed 10/11/23 10/11/23 08:32 Currently or been in a relationship where the following occur: no concerns reported Assessment and Plan Assessment & Plan (1) Osteoporosis: Comment: 2022 bone density scan showed osteoporosis in right femur neck, ordered by Dr. Ornelas Code(s): M81.0 - Age-related osteoporosis without current pathological fracture Qualifiers: Osteoporosis type: age-related Presence of current pathological fracture: without current pathological fracture Qualified Code(s): M81.0 - Age- related osteoporosis without current pathological fracture (2) Essential hypertension: Code(s): I10 - Essential (primary) hypertension (3) Impaired fasting glucose: Code(s): R73.01 - Impaired fasting glucose (4) Tubular adenoma of colon: Comment: done by Dr. Wetzel 2016 showed presence of tubular adenoma, repeat in 5 yearsl repeat colonoscopy done by Dr. Leija 09/16/2021 again showed presence of a tubular adenoma and 2 hyperplastic polyps Code(s): D12.6 - Benign neoplasm of colon, unspecified (5) History of malignant neoplasm of both breasts: Code(s): Z85.3 - Personal history of malignant neoplasm of breast Orders: Orders Hemoglobin A1c Today D12.6 - Benign neoplasm of colon, unspecified, I10 - Essential (primary) hypertension, M81.0 - Age-related osteoporosis without current pathological fracture, R73.01 - Impaired fasting glucose, Z85.3 - Personal history of malignant neoplasm of breast, Z86.39 - Personal history of other endocrine, nutritional and metabolic disease Basic Metabolic Panel Fasting Today D12.6 - Benign neoplasm of colon, unspe cified, I10 - Essential (primary) hypertension, M81.0 - Age-related osteoporosis without current pathological fracture, R73.01 - Impaired fasting glucose, Z85.3 - Personal history of malignant neoplasm of breast, Z86.39 - Personal history of other endocrine, nutritional and metabolic disease Hemoglobin and Hematocrit Today D12.6 - Benign neoplasm of colon, unspecified, I10 - Essential (primary) hypertension, M81.0 - Age-related osteoporosis without current pathological fracture, R73.01 - Impaired fasting glucose, Z85.3 - Personal history of malignant neoplasm of breast, Z86.39 - Personal history of other endocrine, nutritional and metabolic disease Lipid Panel Today D12.6 - Benign neoplasm of colon, unspecified, I10 - Essential (primary) hypertension, M81.0 - Age-related osteoporosis without current pathological fracture, R73.01 - Impaired fasting glucose, Z85.3 - Personal history of malignant neoplasm of breast, Z86.39 - Personal history of other endocrine, nutritional and metabolic disease Alanine Aminotransferase Today D12.6 - Benign neoplasm of colon, unspecified, I10 - Essential (primary) hypertension, M81.0 - Age-related osteoporosis without current pathological fracture, R73.01 - Impaired fasting glucose, Z85.3 - Personal history of malignant neoplasm of breast, Z86.39 - Personal history of other endocrine, nutritional and metabolic disease Aspartate Amino Transferase Today D12.6 - Benign neoplasm of colon, unspecified, I10 - Essential (primary) hypertension, M81.0 - Age-related osteoporosis without current pathological fracture, R73.01 - Impaired fasting glucose, Z85.3 - Personal history of malignant neoplasm of breast, Z86.39 - Personal history of other endocrine, nutritional and metabolic disease Vitamin D 25-OH Total Today D12.6 - Benign neoplasm of colon, unspecified, I10 - Essential (primary) hypertension, M81.0 - Age-related osteoporosis without current pathological fracture, R73.01 - Impaired fasting glucose, Z85.3 - Personal history of malignant neoplasm of breast, Z86.39 - Personal history of other endocrine, nutritional and metabolic disease Medications: New scopolamine base 1 patch transdermal Q3D PRN 4 ea 0RF nausea and vomiting Coding Level of Care Code Est Pt Prev Care >65y(09976) Diagnoses Age-related osteoporosis without current pathological fracture M81.0 Osteoporosis type: age-related Presence of current pathological fracture: without current pathological fracture Essential hypertension I10 Impaired fasting glucose R73.01 Tubular adenoma of colon D12.6 History of malignant neoplasm of both breasts Z85.3
[2023-10-11 08:28] VITALS: BP 125/80; PULSE 85; O2SAT 97; BMI 30.5
== END 2023-10-11 09:51 | disposition home or self-care (01) ==
PROVIDERS: PCP Internal Medicine; Visit Provider Internal Medicine
DX: M81.0 Age-related osteoporosis without current pathological fracture (principal); I10 Essential (primary) hypertension; R73.01 Impaired fasting glucose; D12.6 Benign neoplasm of colon, unspecified; Z85.3 Personal history of malignant neoplasm of breast
CPT/HCPCS: 99499

== ENCOUNTER 2023-10-21 06:06 | Outpatient (REF) | payer BC, SELFPAY ==
[2023-10-21 10:20] LABS: Hematocrit 44.6 % (37.0-47.0)
[2023-10-21 10:58] LABS: Alanine Aminotransferase 13 U/L (0-31); Anion Gap 12 (12-20); Aspartate Amino Transferase 15 U/L (5-31); Blood Urea Nitrogen 19 mg/dL (9-16); Calcium 9.5 mg/dL (8.4-10.2); Carbon Dioxide 27 mmol/L (22-29); Chloride 108 mmol/L (96-108); Cholesterol 186 mg/dL (<200); Estimated Glomerular Filt Rate > 60; Glucose Fasting 102 mg/dL (60-99); HDL Cholesterol 48 mg/dL (>40); LDL Cholesterol Calculated 111 mg/dL (<100); Sodium 143 mmol/L (135-145); Triglycerides 136 mg/dL (<150); Vitamin D 25-OH Total 57.9 ng/mL (>30)
[2023-10-21 11:05] LABS: Estimated Average Glucose 111 mg/dL; Hemoglobin A1c % 5.5 % (<6.0)
== END 2023-10-21 06:07 | disposition home or self-care (01) ==
LOC: HO.HMGCLDS 06:06
PROVIDERS: PCP Internal Medicine; Visit Provider Internal Medicine
DX: M81.0 Age-related osteoporosis without current pathological fracture (principal); Z86.39 Personal history of other endocrine, nutritional and metabolic disease; I10 Essential (primary) hypertension; R73.01 Impaired fasting glucose; D12.6 Benign neoplasm of colon, unspecified; Z85.3 Personal history of malignant neoplasm of breast
CPT/HCPCS: 36415; 80048; 80061; 82306; 83036; 84450; 84460; 85014; 85018

== ENCOUNTER 2024-03-13 10:12 | Outpatient (REF) | payer BC, SELFPAY ==
[2024-03-13 11:25] LABS: Leukocytes Stool Qualitative NEGATIVE (NEGATIVE)
[2024-03-13 11:38] LABS: CDiff Gene PCR NEGATIVE (Negative)
[2024-03-13 12:20] LABS: Adenovirus F 40/41 Not Detected (Not Detect.); Astrovirus Not Detected (Not Detect.); Campylobacter Not Detected (Not Detect.); Cryptosporidium Not Detected (Not Detect.); Cyclospora cayetanensis Not Detected (Not Detect.); E. coli EAEC Not Detected (Not Detect.); E. coli EPEC Not Detected (Not Detect.); E. coli ETEC Not Detected (Not Detect.); E. coli STEC Not Detected (Not Detect.); Entamoeba histolytica Not Detected (Not Detect.); Norovirus GI/GII Not Detected (Not Detect.); Plesiomonas shigelloides Not Detected (Not Detect.); Rotavirus A Not Detected (Not Detect.); Salmonella Not Detected (Not Detect.); Sapovirus Not Detected (Not Detect.); Shigella sp./EIEC Not Detected (Not Detect.); Vibrio Not Detected (Not Detect.); Vibrio Cholerae Not Detected (Not Detect.); Yersinia enterocolitica Not Detected (Not Detect.)
[2024-03-13 13:20] LABS: Giardia lamblia Detected (Not Detect.)
== END 2024-03-13 10:13 | disposition home or self-care (01) ==
LOC: HO.10HDLNP 10:12
PROVIDERS: Visit Provider Internal Medicine Gastroenterology
DX: R19.7 Diarrhea, unspecified (principal)
CPT/HCPCS: 87177; 87209; 87493; 87507; 89055

== ENCOUNTER 2024-09-09 12:12 | Outpatient (REF) | payer BC, SELFPAY ==
--- NOTE | ~2024-09-09 | XR_ITS ---
CLINICAL HISTORY: R07.81 - Pleurodynia Chest Radiographs, 2 views Comparison: None Findings: No cardiomegaly. Normal mediastinal contours. No pneumothorax. No opacity. No pleural effusion. Normal upper abdomen. No acute fracture. Impression: No acute findings. This document has been electronically signed by: Wendy Lund MD on 09/09/2024 13:47:56
--- OUTSIDE RECORDS SUMMARY | 2024-09-09 13:06 | XMS_ITS | Clinical Summary ---
Author Organization [facility] Address [address] [place] [address] Care Team Providers Care Insurance Processing Clerk Name Role Phone Kymberly Sanchez MD Primary Care Provider [phone] Allergies Active Allergy Reactions Criticality Noted Date [...] age to complete this topic Care Teams Insurance Processing Clerk Relationship Specialty Start Date End Date Kymberly Sanchez MD [address] [place] [address] PCP - General Internal Medicine 11/20/19
== END 2024-09-09 12:13 | disposition home or self-care (01) ==
LOC: HO.HMGCX 12:12
PROVIDERS: PCP Internal Medicine; Visit Provider Nurse Practitioner Family
DX: R07.81 Pleurodynia (principal); M81.0 Age-related osteoporosis without current pathological fracture; Z85.3 Personal history of malignant neoplasm of breast
CPT/HCPCS: 71046

== ENCOUNTER 2024-09-09 12:12 | Outpatient (AMB) | payer BC, SELFPAY ==
--- OUTSIDE RECORDS SUMMARY | 2024-09-09 12:14 | XMS_ITS | Clinical Summary ---
Author Organization [facility] Address [address] [place] [address] Care Team Providers Care Software Manager Name Role Phone Kymberly Sanchez MD Primary Care Provider [phone] Allergies Active Allergy Reactions Criticality Noted Date Comments Propoxyphene 09/08/2018 Oxycodone-Acetaminophen 09/08/2018 Medications Medication Sig Dispensed Refills Start Date End Date Status Multiple Vitamin (MULTIVITAMIN+ PO) Take by mouth. 0 Ac tive atenolol (TENORMIN) tablet 25 mg Take 25 mg by mouth daily. 0 Active Calcium 600-200 MG-UNIT per tablet Take 1 tablet by mouth daily. 0 Active ibuprofen (ADVIL,MOTRIN) 800 MG tablet Take 800 mg by mouth every 8 (eight) hours as needed for pain. 0 Active Active Problems Problem Noted Date Diagnosed Date Malignant neoplasm of centra l portion of right breast in female, estrogen receptor positive 09/16/2018 Malignant neoplasm of overla pping sites of left breast in female, estrogen receptor positive 09/16/2018 Social History Tobacco Use Types Packs/Day Years Used Date Smoking Tobacco: Never Smokeless Tobacco: Never Alcohol Use Standard Drinks/Week Comments No 0 (1 standard drink = 0.6 oz pur e alcohol) Sex and Gender Information Value Date Recorded Sex Assigned at Not on file Gender Identity Not on file Sexual Orientation Not on file Last Filed Vital Signs Vital Sign Reading Time Taken Comments Blood Pressure 132/65 11/18/2020 9:07 AM EDT Pulse 90 11/20/2019 10:01 AM EDT Temperature 37.4 ??C (99.4 ??F) 11/18/2020 9:07 AM ED T Respiratory Rate - - Oxygen Saturation 97% 11/18/2020 9:07 AM EDT Inhaled Oxygen Concentration - - Weight 91.6 kg (202 lb) 11/18/2020 9:07 AM EDT Height 172.7 cm (5' 8 ) 11/18/2020 9:07 AM EDT Body Mass Index 30.71 11/18/2020 9:07 AM EDT Plan of Treatment Health Maintenance Due Date Last Done Comments Hepatitis C Screening 1950 COVID-19 Vaccine (#1) 1957 Pneumococcal Vaccine (1 of 2 - PCV) 1958 Depression Screening 1964 Preventative Health Evaluation 1970 Shingrix-Zoster Vaccine (1 of 2) 11/27/1971 Colon Cancer Screening (Colonoscopy) 1997 Breast Cancer Screening (Mammogram) 2002 Fall Risk Assessment 2017 Osteoporosis Screening (DEXA Scan) 2017 Influenza Vaccine (#1) 2024 02/21/2018 DTap / Tdap / Td (2 - Td or Tdap) 03/07/2026 016 RSV Adult > 60+ Yrs or Pregn ant (1 - 1-dose 75+ series) 11/27/2027 Hepatitis B Vaccines Aged Out No long er eligible based on patient's age to complete this topic RSV Ped < 20 months Aged Out No longe r eligible based on patient's age to complete this topic Care Teams Software Manager Relationship Specialty Start Date End Date Kymberly Sanchez MD [address] [place] [address] PCP - General Internal Medicine 11/20/19
--- OUTSIDE RECORDS SUMMARY | 2024-09-09 12:14 | XMS_ITS | Data Portability ---
Author Organization [facility] Service Address [address] [place] [address] Assessment No assessment recorded. Plan of Treatment Reminders Order Date Submit Date Provider Last Modified By Organization Details Last Modified Time Details Appointments None recorded. Lab CBC 2017 018 [email or web address] Not available 8 07:09:17 CMP, serum or plasma 2017 018 [email or web address] Not available 8 07:09:17 lipid panel, blood 2017 018 [email or web address] Not available 8 07:09:17 vitamin D, 25-hydroxy, total, serum 2017 018 [email or web address] Not available 8 07:09:17 TSH + free T4, serum 2017 018 [email or web address] Not available 8 07:09:18 Referral orthopedic referral 2017 018 [email or web address] Not available 8 09:46:59 Procedures None recorded. Surgeries None recorded. Imaging None recorded. Medication Orders None recorded. Patient TargetsNo targets recorded. Patient Instructions Encounter Date Encounter Id Patient Instructions Last Modified By Organization Details Last Modified Time 02/21/2018 [id number] obtain flu vaccine at pharmacy [email or web address] Not available 02/21/2018 10:29:27 2nd opinion re: left hip OA [email or web address] Not available 02/21/2018 10:29:46 Reason for Referral Orthopedic Referral for Oste oarthritis of hip Referring Physician: Sunita Herrera, Internal Medicine, Encounter Date: 02/21/2018 Results Created Date Observation Date Name Description Value Unit Range Abnormal Flag Note LastModifiedBy Organization Detail LastModifiedTime 04/15/20 18 04/11/2018 MAMMO , tera early, bilat eral No observ ation record ed. [email or web address] Not Available 2017 09:52:39 06/15/19 19 06/09/2018 MAMMO , tera early, bilat eral No observ ation record ed. [email or web address] Not Available 2018 16:53:02 Result Notes None recorded. Problems Name Problem SNOMED Code Status Onset Date Resolution Date Notes Provider Name and Address Organization Details Recorded Time Supraventricul ar tachycardia 2015397 Active 2017 Babsmelony cardenas [facility] 8 14:43:26 Osteoarthritis of hip 886688652 Active 2017 left hip Babs cardenas [facility] 8 14:43:39 Malignant tumor of breast 517767431 Active 2017 Right and left Babs cardenas [facility] 8 14:44:35 Problem Notes None recorded. Procedures Surgical History Date Name Laterality Status Provider Name and Address Organization Details Recorded Time 08/06/19 18 Date of Last Pap Smear completed Sunita Herrera NP, [address] [facility], [place], [address], [facility] 02/21/2018 09:09:51 06/07/19 12 Colonoscopy completed Babsmelony Huang [facility] 02/18/2018 14:46:12 Imaging Results Imaging Date Name Status LastModified by Organiz ation Details LastModified Time 04/11/2018 MAMMO, screening, bilateral completed Information not available 04/15/2018 09:52:39 06/09/2018 MAMMO, screening, bilateral completed Information not available 06/15/2018 16:53:02 Procedure Notes None recorded. Medical Equipment None Reported. Allergies Allergen ID Allergen Name Allergen Category Reaction Reaction Severity Criticality Documentation Date Start Date Code Code System Note Provider Name and Address Organization Details Recorded Time 2288 acetamino phen / oxycodone medicatio n Not available Not available Not available 02/18/2018 80845 3 RxNorm Babs Huang [facility] 8 14:40:08 Medications Name Sig Start Date Stop Date Status Note LastModified by Organization Details LastModified Time ibuprofen 800 mg tablet TAKE 1 TABLET BY MOUTH TWICE A DAY NEEDED 019 active Not Available Not Available Not Avai lable atenolol 25 mg tablet TAke 1/2 in the AM and 1/2 in the pm 018 active Not Available Not Available Not Avai lable Vitals Date Recorded Body height Body mass index (BMI) Body weight Heart rate Oxygen saturation Oxygen saturation in Arterial blood by Pulse oximetry Systolic blood pressure Diastolic blood pressure Provider Name and Address Organization Details Last Updated DateTime 8 175.26 cm 31.1 kg/m2 14034.9 1 g 62 /min 96 % 96 % 130 mm[Hg] 70 mm[Hg] Babs Huang MA [facility] 8 09:01:14 Social History Question Answer Notes LastModified by Organizat ion Details LastModified Time Tobacco Smoking Status Never Smoker Not Available [facility] 04/09/2020 03:36:24 What Was The Date Of Your Most Recent Tobacco Screening? 02/21/2018 [id number] Information not available 04/09/2020 Sex: Unknown Functional Status None recorded. Mental Status None recorded. Family History Relationship Description Onset Age of this Age Resolved Age Notes LastModified by Organization Details LastModified Time Mother Chronic obstructive pulmonary disease 82 lympho bobby ribera Not available 02/21/2018 09:08:08 Father Malignant neoplastic disease 85 ? colon [email or web address] Not available 02/21/2018 09:09:01 Sister Malignant tumor of breast [email or web address] Not available 2017 09:09:22 Medical History Condition Response Coronary Artery Disease N Gout N Kidney Stones N Blood Diseases N Hyperthyroidism N Breast Cancer Y Blood Transfusion N Hypothyroidism N Lung Disease N COPD N Depression N Defects or Inherited Disease N Difficulty Swallowing N Anesthesia Complications Y Meniere's disease N Anxiety Disorder N Muscle, Joint, or Bone Problems N Vision or Eye Problems Y Arthritis Y Polyps Y Mental Disorder N Cancer Y Stroke N Varicosities N Bladder or Kidney Problems N High Cholesterol N Liver Disease N Fibromyalgia N Headaches Y Kidney Disease N Allergies/Hayfever N Heart Problems Y Thyroid Problems N GI Problems N Eating Disorder N Skin Problems Y Anemia N MRSA exposure N Constipation N Mental Illness N Ovarian Cancer N Diabetes N Seizures/Epilepsy N Tuberculosis N Congestive Heart Failure (CHF) N Eczema Y Diverticulitis N Abuse/Domestic Violence N Asthma N Reflux/GERD Y Hepatitis N Heart Disease N Pulmonary Embolism N Chronic Ear Infections N Hypertension N Chicken Pox Y Autism Spectrum Disorder (ASD) N Osteoporosis N Thrombophilias N Gynecological History Statement/Question Response If Post Menopausal, Age at Menopause 58 HPV Vaccine N Date of Last Pap Smear 08/05/2017 Sexual Problems? Y Current Control Method Menopause Age at Menarche 16 Age at First Child 31 Obstetrics History GPAL:G 3 P 2 0 1 0 Type Value Full Term 2 Spontaneous 1 Total 3 Immunizations Vaccine Type Date Status Note Provider Nam e and Address Organization Details Recorded Time tetanus toxoid, unspecified formulation 6 completed Babs cardenas [facility] 02/18/2018 14:45:39 Tdap 6 completed Sunita Herrera NP, [address] [place] [address], [phone], [facility] 02/21/2018 09:22:07 Influenza, split virus, quadrivalent, preservative 8 completed Babs cardenas [facility] 03/01/2018 11:18:46 Past Encounters Encounter ID Performer Location Encounter Start Date Encounter Closed Date Diagnosis/Indication Diagnosis SNOMED-CT Code Diagnosis ICD10 Code Diagnosis Note [id number] Sunita Herrera NP, S [facility] [address] [facility],[place] [address] 02/21/2018 08:51:28 02/21/2018 10:37:04 Adult health examination 825694142 Z00.00 Active or passive immunization 915532257 Z23 discussed flu vaccine Osteoarthritis of hip 23 8846607 M16.12 Supraventr icular tachycardia 4977392 I47.1 stable with atenolol Health Concerns Section Related Observation LastModified by Organization Detai ls LastModified Time None Recorded Concern Status LastModified by Organization Details LastModified Time None Recorded Advance Directives Directive None Recorded Payers Encounter Date Sequence Insurance Name Policy Number Policy Suero Covered Member ID Suero Member ID Guarantor Name 02/21/2018 1 AINSLEY: PAUL (PPO) [id number] Domingo Edin [id number] Rebeca Edin Notes Date Note Type Note Provider Name a nd Address Organization Details Recorded Time 8 text/html Annual WellnessReported bypatient.Diet and Nutrition:healthy diet;high caloric intake Fracture Risk:no history of fractures; no recent explained fracture; no sudden unexplained fractures; no previous musculoskeletal injuries Physical Activity:does not exercise on a regular basis;deconditioned due to sedentary lifestyle Additional Lifestyle Factors:no tobacco use; drinks alcohol (mild-moderate) Depression Risk:never feels sad, empty, or tearful; no loss of interest in activities; no significant changes in weight; no sleep disturbances or insomnia; no agitation; no loss of energy; no feelings of worthlessness or guilt; no thoughts of suicide; no history of depression; no history of mood disorders Hearing:no loss of hearing Vision:no vision problems Sunita Herrera NP, [address] [place] [address], [place], [address], [facility] 02/21/2018 10:30:23 OBGyn Episode No OBEpisode recorded.
--- OUTSIDE RECORDS SUMMARY | 2024-09-09 12:14 | XMS_ITS ---
Author Organization [facility] Address [address] [place] [phone] Care Team Providers Care Bridge Maintenance Worker Name Role Phone Laura NUNO, Kymberly Primary Care Provider Samantha Leija Jr, Jozef Rivers REASON FOR VISIT Has some questions for you Encounters Encounter Location Date Provider Diagnosis [facility] [address] [place] [address] 03/15/2024 Jozef Leija Jr Plan Of Treatment No Information Progress Notes * KATHE LEALDOB:[birth year] (73 yo F)Acc No.[id number]:03/15/2024 Patient:?KATHE LEAL :1950???Age:73 Y???Sex:Female Address:[address] [place] [address], [address] Subjective: * Chief Complaints: * ???Has some questions for yo u * Medical History:? * Surgical History:? * Hospitalization/Major Diagno stic Procedure:? * Medications:? Objective: Assessment: Plan: * Treatment: * Procedure Codes:? * true * Date:? Generated for Radhai zeke/Faelizabethg/eTransmitting on:?09/09/2024 12:14 PM EDT
--- OUTSIDE RECORDS SUMMARY | 2024-09-09 12:14 | XMS_ITS | Patient Health Record ---
Author Organization [facility] Address [address] [place] [address] Care Team Providers Care Camera Operator Name Role Phone Laura NUNO, Kymberly Primary Care Provider Jozef Serrano Jr Unavailable [phone] Allergies Allergen (clinical drug ingredient) Drug/Non Drug Allergy documented on EMR Reaction Allergy Type Onset Date Status acetaminophen / oxycodone Percocet Unknown Drug Allergy Active Results Component Value Reference Range Notes GI PANEL Reviewed date:03/16/2024 08:53:30 AM Interpretation: Performing Lab:[facility], [address] [place] [phone] Notes/Report: Campylobacter Not Detected Not Detect. Plesiomonas shigelloides Not Detected Not Detect. Salmonella Not Detected Not Detect. Vibrio Not Detected Not Detect. Vibrio Cholerae Not Detected Not Detect. Yersinia enterocolitica Not Detected Not Detect. E. coli EAEC Not Detected Not Detect. E. coli EPEC Not Detected Not Detect. E. coli ETEC Not Detected Not Detect. E. coli STEC Not Detected Not Detect. E. coli O157 Not applicable Not Detect. E. coli containing the O157 antigen are a subset of Shiga-like toxin-producing E. coli (STEC). Shigella sp./EIEC Not Detected Not Detect. Cryptosporidium Not Detected Not Detect. Cyclospora cayetanensis Not Detected Not Detect. Entamoeba histolytica Not Detected Not Detect. Giardia lamblia Detected Not Detect. Results called to and read back by Erika at Dr. Leija's office on 03/13/24 at 1319 by ALEA. Adenovirus F 40/41 Not Detected Not Detect. Astrovirus Not Detected Not Detect. Norovirus GI/GII Not Detected Not Detect. Rotavirus A Not Detected Not Detect. Sapovirus Not Detected Not Detect. All results must be correlated with clinical findings. Negative results do not exclude the possibility of gastrointestinal infection and should not be used as the sole basis for diagnosis, treatment, or other management decisions. Virus, bacteria, and parasite nucleic acid may persist in vivo independently of organism viability. Additionally, some organisms may be carried symptomatically. Detection of organism targets does not imply that the corresponding organisms are infectious or are the causative agents for clinical symptoms. There is a risk of false negative values due to the presence of sequence variants in the gene targets of the assay, amplification inhibitors in specimens, or inadequate numbers of organisms for amplification. The identification of several diarrheagenic E. coli pathotypes has historically relied upon phenotypic characteristics. This panel targets genetic determinants characteristic of most pathogenic strains, but may not detect all strains having phenotypic characteristics of a pathotype. The performance of this test has not been established for monitoring treatment of infection with any of the panel organisms. This assay is performed by Multiplexed PCR, utilizing the [employer] Array. Leukocytes Stool Qualitative Reviewed date:03/15/2024 07:53:13 AM Interpretation: Performing Lab:[facility], [address] [place] [phone] Notes/Report: Leukocytes Stool Qualitative NEGATIVE NEGATIVE Ova and Parasite Reviewed date:03/21/2024 02:45:17 PM Interpretation: Performing Lab:[facility], [address] [place] [phone] Notes/Report: Ova and Parasite SEE NOTE OVA AND PARASITES, CONC AND PERM SMEAR Micro Number: [id number] Test Status: Final Specimen Source: Stool Specimen Quality: Adequate CONCENTRATION 1: No ova or parasites seen TRICHROME 1: No ova or parasites seen Routine Ova and Parasite exam may not detect some parasites that occasionally cause diarrheal illness. Cryptosporidium Antigen and/or Cyclospora Isospora Exam may be ordered to detect these parasites. For additional information, please refer to https://education.Nvest.2threads/faq/NXK813 (This link is being provided for informational/ educational purposes only.) THIS TEST WAS PERFORMED AT: [facility] [employer] [address] [address] GINA LIPSCOMB MD CDiff Gene PCR Reviewed date:03/15/2024 07:53:06 AM Interpretation: Performing Lab:[facility], [address] [place] [address], [place] [address] Notes/Report: CDiff Gene PCR NEGATIVE Negative If C. difficile strongly suspected despite one negative test, a second test may be sent vs. empiric treatment for C. difficile infection. Reason For Referral No Information Medications Medication SIG (Take, Route, Frequency, Duration) Notes Start Date End Date Status Tinidazole 500 MG 4 tablets with food Orally Once 03/13/2024 Active Atenolol 25 MG 1 tablet Orally Once a day for 30 day(s) Active Motrin 800 MG 1 tablet with food o r milk as needed Orally Three times a day Active MiraLax (colon prep) 17 GM/SCOOP mixed with Gatorade or Crystal Light Orally begin at 5:00 p.m. the day before the procedure for 1 day 08/04/2021 Active Immunizations Vaccine Route Administration Date Status Comme nts Influenza Unknown 02/19/2021 Administered Social History Tobacco Use: Social History Observation Description Date Details (start date - stop date) Never Smoker NA - NA Tobacco Use/Smoking Question Answer Notes Patient is a nonsmoker Alcohol Screen Question Answer Notes Did you have a drink containing alcohol in the p ast year? No Points 0 Interpretation Negative Problems Problem Type SNOMED Code ICD Code Onset Dates Problem Status W/U Status Risk Notes Problem 939463806 Colon cancer screening (Z12.11) Active confirmed Problem 87444711 Diarrhea, unspecified type (R19.7) Active confirmed Problem 318254854 Encntr long-term NSAID use (Z79.1) Active confirmed Encounters Encounter Location Date Provider Diagnosis [facility] [address] [place] [phone] 03/13/2024 Jozef Leija Jr Diarrhea, unspecified type R19.7 [facility] [address] [place] [phone] 03/13/2024 Jozef Leija Jr [facility] [address] [place] [phone] 03/15/2024 Jozef Leija Jr Assessments Encounter Date Diagnosis (ICD Code) Assessment Notes Treatment Notes Treatment Clinical Notes Section Notes 03/13/2024 Diarrhea, unspecified type (ICD-10 - R19.7) Plan Of Treatment Pending Test Test Name Order Date STOOL WBC 03/13/2024 OVA & PARASITES (O&P) 03/13/2024 CDiff Gene PCR 03/13/2024 Future Test Test Name Order Date COLONOSCOPY 08/04/2021 Insurance Providers Payer Name Payer Address Payer Phone Subscriber Number Group Number Insured Name Patient Relationship to Insured Coverage Start Date Coverage End Date [facility] [address] [place], [place] [id number] [phone] [id number] KATHE LEAL Self - patient is the insured Medical (General) History Medical History History ICD Code high blood pressure Breast cancer Osteopenia Colon polyps, colonoscopy 10/21, tubular adenoma five-year followup Surgical History Surgery Date(Month/Year) bilateral breast lumpectomies x [phone] 4
--- OUTSIDE RECORDS SUMMARY | 2024-09-09 12:14 | XMS_ITS ---
Author Organization [facility] Address [address] [place] [phone] Care Team Providers Care Acoustical Installer Name Role Phone Laura NUNO, Kymberly Primary Care Provider Samantha Leija Jr, Jozef Rivers REASON FOR VISIT result Medications Medication SIG (Take, Route, Fr equency, Duration) Notes Start Date End Date Status Tinidazole 500 MG 4 tablets with food Orally Once 03/13/2024 Active Encounters Encounter Location Date Provider Diagnosis [facility] [address] [place] [phone] 03/13/2024 Jozef Leija Jr Plan Of Treatment Medication Medication Name Sig Start Date Stop Date Notes Tinidazole 500 MG 4 tablets with food Orally Once 03/13/20 24 Progress Notes * KATHE LEALDOB:[birth year] (73 yo F)Acc No.[id number]:03/13/2024 Patient:?KATHE LEAL :1950???Age:73 Y???Sex:Female Address:[address] [place] [address], [address] * Refills? Start Tinidazole Tablet, 500 MG, Orally, 4, 4 tablets with food, Once, Refills=0 Subjective: * Chief Complaints: * ???Result * Medical History:? * Surgical History:? * Hospitalization/Major Diagno stic Procedure:? * Medications:? Objective: Assessment: Plan: * Treatment: * Procedure Codes:? * true * Date:? Generated for Kale alanis/Bismark/Santaitting on:?09/09/2024 12:14 PM EDT
[2024-09-09 12:15] VITALS: BP 140/80; PULSE 80; TEMP 36.7; O2SAT 96; BMI 29.5
--- NOTE | 2024-09-09 12:15 | MHC.OFFWIV ---
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 Patient Tobacco Use Status: Never used Tobacco Allergies oxycodone [Percocet] Adverse Reaction (Unknown, Verified 09/09/24 12:31) nausea demerol Adverse Reaction (Unknown, Uncoded 09/09/24 12:31) nausea Medication List - Last Reconciled 09/09/24 by Emy Stevens, [facility] acetaminophen ER (Tylenol Arthritis Pain) 650 mg PO Q8H PRN atenolol 25 mg PO DAILY calcium carbonate-vitamin D3 600 mg-20 mcg (800 unit) (Caltrate plus D) 1 tab PO DAILY cholecalciferol (vitamin D3) 50 mcg PO DAILY scopolamine base 1 patch transdermal Q3D PRN Do you need a note to return to daycare/school/sports/work: No HPI HPI Comments History of Present Illness Details History - The patient is a 73-year-old female presenting with right-sided back pain. - Reports waking with continuous right-sided back pain around the ribs last Wednesday, without previous similar episodes. - Pain remains localized, constant, and tender; improves when the patient lies on the affected side but remains tender near the ribs. - Failed relief with heating pad, Extra Strength Tylenol, and Bengay. - Denies systemic symptoms such as fever, chills, shortness of breath, cough, or recent trauma. - No changes in urination or bowel movements; pain is non-radiating. - Has a significant history of breast cancer x 2, in remission, and osteoporosis diagnosed in the right hip last year. - Occasional lifting of a 30-pound grandson noted. Denies fever, chills, sob, chest pain, cough, trauma, no hx of recent URI sx, recent travel, prolonged immobility, pain does not radiate, no changes in urinary. Denies personal hx of kidney stones. Physical Exam General: Awake, alert. No apparent distress RRR LS CTAB, no cough Reproducable pain with palp over R lateral ribs, no retractions, no crepitus or rib deformity Skin is w/o rash No CVAT Results CXR ordered: Results as below Discussion Notes Upon evaluation, I discussed with the patient that the current presentation of right-sided back pain could potentially be related to conditions such as costochondritis. Given her history of breast cancer and the constant nature of her pain, it's prudent to obtain a chest X-ray to rule out any serious conditions. I reassured the patient about the clear lung examination. Should the X-ray reveal normal findings, I explained that costochondritis could be a likely diagnosis and discussed the need for aggressive management with anti-inflammatory treatments and the benefits of moist heat application. Patient Instructions - Obtain the chest X-ray as instructed. - Use moist heat on the affected area for relief. - Take ebuv-gjy-alctwdm anti-inflammatories as required. - Follow updates via the patient portal for test results. - Contact the office if symptoms worsen or new symptoms arise. Message via portal at 1403: Great news, xray is normal I recommend taking Ibuprofen 800 mg three times per day, with food, for about 7 days; apply warm moist compresses; gentle stretching to see if this helps. If it does not, or if it worsens, please come back or follow up with primary care. Consent Patient was informed and verbally consented to the use of an ambient scribe for clinic note documentation during this visit. Total time spent caring for the patient today was 37 minutes. This includes time spent before the visit reviewing the chart, time spent during the visit, and time spent after the visit on documentation, reviewing laboratory results, diagnostic imaging, medications, performing a medically necessary evaluation, counseling on diagnoses, care coordination, ordering appropriate tests, ordering appropriate medications, review of tests performed by other providers, reporting test results with the patient, communication with other healthcare providers. [facility] Medical History (Updated 09/09/24 @ 12:36 by Emy Stevens, [facility]) Breast cancer screening by mammogram Essential hypertension Fracture of right fibula History of malignant neoplasm of both breasts History of vitamin D deficiency Hx of supraventricular tachycardia Impaired fasting glucose Infiltrating ductal carcinoma of left breast Invasive lobular carcinoma of right breast in female Osteoarthritis of left hip Osteoporosis PONV (postoperative nausea and vomiting) Routine Papanicolaou smear Tinnitus of right ear Tubular adenoma of colon Surgical History History of lumpectomy of left breast History of lumpectomy of right breast History of lymph node dissection of left axilla History of lymph node excision Hx of colonoscopy S/P total left hip arthroplasty Family History Father Cancer of prostate Mother COPD (chronic obstructive pulmonary disease) Sister Breast cancer Paternal Grandmother Breast cancer Brother No problems noted. Sister No problems noted. Son No problems noted. Daughter No problems noted. Social History Housing: House Are you a primary urgent care nurse practitioner to a significant other at home: No Do you presently have visiting nurse or other home services: No Alcohol intake: never Patient Tobacco Use Status: Never used Tobacco e-Cigarette/Vaping Use: Never Used Advance Directives Date on File: 03/28/20 service: No Current occupational status: retired Cognitive needs: No Hearing needs: No Vision needs: No Physical Exam Vital Signs: Last Vital Signs Temp 98.0 F 09/09/24 12:15 Pulse 80 09/09/24 12:15 BP 140/80 H 09/09/24 12:15 Pulse Ox 96 09/09/24 12:15 Oxygen Delivery Method Room Air 09/09/24 12:15 BMI result Body Mass Index 29.5 Results Reviewed Results Reviewed: [facility] [place] [address] XRay Report Signed Patient: Rebeca Fernandez MR#: [id number] : 1950 Acct:[id number] Age/Sex: 73 / F ADM Date: 09/09/24 Loc: HO.HMGCX Attending Dr: Emy BALTAZAR Ordering Physician: Emy Stevens Date of Service: 09/09/24 Procedure(s): XR chest 2V Accession Number(s): [id number] cc: Kymberly Sanchez MD; Emy Stevens~ CLINICAL HISTORY: R07.81 - Pleurodynia Chest Radiographs, 2 views Comparison: None Findings: No cardiomegaly. Normal mediastinal contours. No pneumothorax. No opacity. No pleural effusion. Normal upper abdomen. No acute fracture. Impression: No acute findings. This document has been electronically signed by: Wendy Lund MD on 09/09/2024 13:47:56 Assessment & Plan Assessment & Plan (1) Costochondral pain: Code(s): R07.89 - Other chest pain (2) Rib pain on right side: Code(s): R07.81 - Pleurodynia (3) Osteoporosis: Comment: 2022 bone density scan showed osteoporosis in right femur neck, ordered by Dr. Ornelas Code(s): M81.0 - Age-related osteoporosis without current pathological fracture Qualifiers: Osteoporosis type: age-related Presence of current pathological fracture: without current pathological fracture Qualified Code(s): M81.0 - Age-related osteoporosis without current pathological fracture (4) History of breast cancer: Code(s): Z85.3 - Personal history of malignant neoplasm of breast Plan . Orders: Orders XR chest 2V Today M81.0 - Age-related osteoporosis without current pathological fracture, R07.81 - Pleurodynia, Z85.3 - Personal history of malignant neoplasm of breast Coding Level of Care Code Est Pt Level 4 (14709) Diagnoses Costochondral pain R07.89 Rib pain on right side R07.81 Age-related osteoporosis without current pathological fracture M81.0 Osteoporosis type: age-related Presence of current pathological fracture: without current pathological fracture History of breast cancer Z85.3
--- OUTSIDE RECORDS SUMMARY | 2024-09-09 12:15 | XMS_ITS ---
Author Organization [facility] Address [address] [place] [address] Care Team Providers Care Mortician Supplies Sales Representative Name Role Phone Laura NUNO, Kymberly Primary Care Provider Samantha Leija Jr Jozef Unavailable Results Component Value Reference Range Notes GI PANEL Reviewed date:03/16/2024 08:53:30 AM Interpretation: Performing Lab:[facility], [address] [place] [phone] Notes/Report: Campylobacter Not Detected Not Detect. Plesiomonas [...] and read back by Erika at Dr. Lieja's office on 03/13/24 at 1319 by ALEA. [...] is performed by Multiplexed PCR, utilizing the [employer] Array. REASON FOR VISIT Diarrhea Problems Problem Type SNOMED Code ICD Code Onset Dates Problem Status W/U Status Risk Notes Problem 69321013 Diarrhea, unspecified type (R19.7) Active confirmed Encounters Encounter Location Date Provider Diagnosis [facility] [address] [place] [phone] 03/13/2024 Jozef Leija Jr Diarrhea, unspecified type R19.7 Assessments Encounter Date Diagnosis (ICD Code) Assessment Notes Treatment Notes Treatment Clinical Notes Section Notes 03/13/2024 Diarrhea, unspecified type (ICD-10 - R19.7) Plan Of Treatment Pending Test Test Name Order Date STOOL WBC 03/13/2024 OVA & PARASITES (O&P) 03/13/2024 CDiff Gene PCR 03/13/2024 Progress Notes * KATHE LEALDOB:[birth year] (73 yo F)Acc No.[id number]:03/13/2024 Patient:?KATHE LEAL Michelle :1950???Age:73 Y???Sex:Female Address:[address] [place] [address], [address] Subjective: * Chief Complaints: * ???Diarrhea * Medical History:? * Surgical History:? * Hospitalization/Major Diagno stic Procedure:? * Medications:? Objective: Assessment: * Assessment: 1.?Diarrhea, unspecified typ e - R19.7? Plan: * Treatment: * Procedure Codes:? * true * Date:? Generated for Kale alanis/Bismark/Kacie on:?09/09/2024 12:14 PM EDT
--- OUTSIDE RECORDS SUMMARY | 2024-09-09 12:15 | XMS_ITS | Data Portability ---
Author Organization [facility]FIN[facility], [facility] Address [address] [place] [address] Care Team Providers Care Measuring Clerk Name Role Phone DK ALEXANDER Primary Care Provider [phone] Assessment Encounter Date Assessment Date Assessment LastModified by Organization Details LastModified Time 09/17/2023 09/17/2023 Imaging: Imaging ordered, independently reviewed and interpreted by Regulo Ratliff MD reveals the following findings: XR Hip Left hip: Two views of the hip were obtained including AP pelvis and groin lateral views. Status post hip surgery: Status post GAGAN with no evidence of complication, well fixed, well aligned, and located. There is good anabaptist of leg length and offset without loosening or migration. Impression: Status post left anterior total hip arthroplasty, 1 year out Plan: The patient is doing well, continue activities as tolerated. Further follow-up as needed. She does have arthritis in her right hip and it is starting to bother her a little bit but she wants to wait until it is more severe before considering hip replacement surgery. She will contact our office for follow-up if she has significant worsening of her right hip pain [email or web address] Not available 09/17/2023 13:14:28 Plan of Treatment Reminders Order Date Submit Date Provider Last Modified By Organization Details Last Modified Time Details Appointments None recorded. Lab None recorded. Referral None recorded. Procedures None recorded. Surgeries None recorded. Imaging XR, hip, unilateral, 2 or 3 view - LTHR annual AB 2023 024 [facility] [address] [facility], [address], [address], [place], [address], 4 16:57:00 Medication Orders amoxicillin 500 mg tablet 2023 024 abrothers 14 [facility] #[id number], [address] [place], [address], 16:57:00 Patient TargetsNo targets recorded. Patient InstructionsNo instructions recorded. Reason for Referral None Reported. Results Created Date Observation Date Name Description Value Unit Range Abnormal Flag Note LastModifiedBy Organization Detail LastModifiedTime 02/05/20 24 08/06/2022 imagi ng/di agnos tic resul t No observ ation record ed. [email or web address] Not Available 01/07 07:35:21 02/05/20 24 08/06/2022 imagi ng/di agnos tic resul t No observ ation record ed. [email or web address] Not Available 01/07 07:35:27 02/05/20 24 08/06/2022 imagi ng/di agnos tic resul t No observ ation record ed. [email or web address] Not Available 01/07 07:35:28 Result Notes None recorded. 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, [place], [address] , [facility] 4 13:14:26 Problem Notes None recorded. Procedures Surgical History None recorded. Imaging Results Imaging Date Name Status LastModified by Organiz [facility] Details LastModified Time 08/06/2022 imaging/diag nostic result completed Information not available 02/05/2024 07:35:21 08/06/2022 imaging/diag nostic result completed Information not available 02/05/2024 07:35:27 08/06/2022 imaging/diag nostic result completed Information not available 02/05/2024 07:35:28 Procedure Notes None recorded. Medical Equipment None Reported. Allergies Allergen ID Allergen Name Allergen Category Reaction Reaction Severity Criticality Documentation Date Start Date Code Code System Note Provider Name and Address Organization Details Recorded Time 25490 acetamino phen / oxycodone medicatio n Not available Not available Not available 08/09/20232013 06430 3 RxNorm Aller gyRea ction : 'Naus ea/Vo mitin g/Violeta rrhea '; Not Available [facility] 4 13:10:35 21257 Demerol medicatio n Not available Not available Not available 08/09/20232013 87064 1 RxNorm Aller gyRea ction : 'Naus ea/Vo mitin g/Violeta rrhea '; Not Available [facility] 4 13:10:35 Medications Name Sig Start Date Stop Date Status Note LastModified by Organization Details LastModified Time amoxicillin 500 mg capsule PLEASE TAKE 4 CAPSULES BY MOUTH 1 HOUR BEFORE DENTAL WORK active Not Available Not Available No t Available alendronate 70 mg tablet TAKE 1 TABLET BY MOUTH EVERY WEEK IN THE MORNING ON AN EMPTY STOMACH WITH 8OZ OF WATER active Not Available Not Available No t Available atenolol 25 mg tablet TAKE 1 TABLET BY MOUTH EVERY DAY active Not Available Not Available No t Available amoxicillin 500 mg tablet please take 4 tabs by mouth 1 hour before dental work 2023 active Not Available Not Available Not Avai lable benzonatate 100 mg capsule SWALLOW WHOLE TAKE 1 CAPSULE 3 TIMES A DAY NEEDED *DO NOT BREAK CHEW, DISSOLVE, CUT, OR CRUSH* active Not Available Not Available No t Available betamethasone dipropionate 0.05 % topical cream APPLY TWICE DAILY TO AREA ON BACK X2 WEEKS ON THEN 1 WEEK OFF THEN USE MOISTURIZ ER. REPEAT NEEDED active Not Available Not Available No t Available amoxicillin 875 mg-potassium clavulanate 125 mg tablet TAKE 1 TABLET BY MOUTH TWICE A DAY FOR 7 DAYS active Not Available Not Available No t Available Vitals Date Recorded Body height Body mass index (BMI) Body weight Provider Name and Address Organization Details Last Updated DateTime 09/17/2023 175.26 cm 29.5 kg/m2 06658.47 g [facility] 09/17/2023 10:50:20 Social History None recorded. Functional Status None recorded. Mental Status None recorded. Family History Nothing Reported. Medical History No medical history recorded. Gynecological HistoryNo gynecological history recorded. Obstetrics History GPAL:G 0 P 0 0 0 0 Past Encounters Encounter ID Performer Location Encounter Start Date Encounter Closed Date Diagnosis/Indication Diagnosis SNOMED-CT Code Diagnosis ICD10 Code Diagnosis Note [id number] MD [facility] [address] [place] [address] 09/17/2023 09:50:58 10/08/2023 10:21:36 History of total replacement of left hip joint [id number] 322134 Z96.642 Health Concerns Section Related Observation LastModified by Organization Detai ls LastModified Time None Recorded Concern Status LastModified by Organization Details LastModified Time None Recorded Advance Directives Directive None Recorded Payers Encounter Date Sequence Insurance Name Policy Number Policy Suero Covered Member ID Suero Member ID Guarantor Name 09/17/2023 1 [place] [employer] [place] [id number] Rebeca Jesus [id number] Rebeca Jesus Notes Date Note Type Note Provider Name and Address Organization Details Recorded Time 09/17/2023 text/html History of prese nt illness:Rebeca follows up is now 1 year out from left anterior total hip arthroplasty. She is doing extremely well, her only complaint is some decreased sensation along the lateral aspect of her thigh consistent with lateral femoral cutaneous nerve palsy. She does have intact sensation but states it feels less than the other side and she occasionally gets burning or tingly sensation in the lateral thigh. She states this is not severe, she has not yet tried any treatment for it. We discussed topical anti-inflammatory gel which I believe is likely to help decrease the incidence of these episodes of burning and tinglingPast family, medical, social history and review of systems has been reviewed and updated, and is located in the patient? s chart. Regulo Ratliff MD [address], [place], [address], [facility] 09/17/2023 13:14:39 OBGyn Episode No OBEpisode recorded.
== END 2024-09-09 12:39 | disposition home or self-care (01) ==
LOC: HO.HMCWIC 12:12
PROVIDERS: PCP Internal Medicine; Visit Provider Nurse Practitioner Family
DX: R07.89 Other chest pain (principal); R07.81 Pleurodynia; M81.0 Age-related osteoporosis without current pathological fracture; Z85.3 Personal history of malignant neoplasm of breast

== ENCOUNTER → 2024-09-09 13:07 | Outpatient (BNV) | payer BC, SELFPAY | PROVIDERS: PCP Internal Medicine; Visit Provider Radiology Diagnostic Radiology | DX: R07.81 Pleurodynia (principal) | CPT/HCPCS: 71046 ==

== ENCOUNTER 2024-10-14 07:14 | Outpatient (REF) | payer BC, SELFPAY ==
[2024-10-14 12:03] LABS: Alanine Aminotransferase 20 U/L (0-31); Anion Gap 12 (12-20); Aspartate Amino Transferase 23 U/L (5-31); Blood Urea Nitrogen 14 mg/dL (9-16); Calcium 9.5 mg/dL (8.4-10.2); Carbon Dioxide 27 mmol/L (22-29); Chloride 107 mmol/L (96-108); Cholesterol 189 mg/dL (<200); Estimated Glomerular Filt Rate > 60; Glucose Fasting 103 mg/dL (60-99); HDL Cholesterol 49 mg/dL (>40); LDL Cholesterol Calculated 120 mg/dL (<100); Potassium 4.3 mmol/L (3.3-5.1); Sodium 142 mmol/L (135-145); Triglycerides 101 mg/dL (<150)
[2024-10-14 12:20] LABS: Vitamin D 25-OH Total 53.6 ng/mL (>30)
== END 2024-10-14 07:15 | disposition home or self-care (01) ==
LOC: HO.HMGCLDS 07:14
PROVIDERS: PCP Internal Medicine; Visit Provider Internal Medicine
DX: I10 Essential (primary) hypertension (principal); Z86.39 Personal history of other endocrine, nutritional and metabolic disease; M81.0 Age-related osteoporosis without current pathological fracture; R73.01 Impaired fasting glucose
CPT/HCPCS: 36415; 80048; 80061; 82306; 84450; 84460

== ENCOUNTER 2024-10-16 12:18 | Outpatient (AMB) | payer BC, SELFPAY ==
[2024-10-16 12:44] VITALS: BP 122/74; PULSE 86; RESP 18; TEMP 36.8; O2SAT 96; BMI 30.6
--- NOTE | 2024-10-16 12:44 | MHC.PC.OV ---
Vital Signs 10/16/24 12:44 Height 5 ft 9 in Weight 207 lb BMI 30.6 BP 122/74 Blood Pressure Location Rt brachial Position Sitting Respiration 18 Pulse 86 Pulse Source Pulse Oximeter Temp 98.3 F Temp Source Oral Pulse Oximetry (%) 96 Oxygen Delivery Method Room Air Intake Visit Reasons: Annual PE Intake Note: Pt is here today for PE. Pt states that her last mammo was in May last year. Allergies oxycodone [Percocet] Adverse Reaction (Unknown, Verified 10/30/24 03:24) nausea demerol Adverse Reaction (Unknown, Uncoded 10/30/24 03:24) nausea Medication List - Last Reconciled 10/30/24 by Kymberly Sanchez MD acetaminophen ER (Tylenol Arthritis Pain) 650 mg PO Q8H PRN atenolol 25 mg PO DAILY calcium carbonate-vitamin D3 600 mg-20 mcg (800 unit) (Caltrate plus D) 1 tab PO DAILY cholecalciferol (vitamin D3) 50 mcg PO DAILY ibuprofen 800 mg PO Q12H PRN scopolamine base 1 patch transdermal Q3D PRN Tobacco use date assessed: 10/16/24 Fall risk assessment: No Falls in past year Last assessed Fall Risk: 10/16/24 Dental Screening Dental Screen Date: 10/16/24 Did you have a dental visit in the last 12 months?: Yes Did you have a dental problem in the last 6 months where you did not have access to dental care?: No Was dental information given to patient?: Patient has dentist HPI Annual PE HPI Details 73 year-old lady with history of bilateral breast cancers status post radiotherapy, has hypertension, history of tubular adenoma of colon, and osteopenia in her right femoral neck and right femur, here today for physical exam. [facility] Medical History (Updated 10/16/24 @ 13:29 by Kymberly Sanchez MD) History of adenomatous polyp of colon Impaired fasting glucose Osteoporosis History of vitamin D deficiency Tinnitus of right ear Osteoarthritis of left hip PONV (postoperative nausea and vomiting) Hx of supraventricular tachycardia Essential hypertension Breast cancer screening by mammogram Routine Papanicolaou smear Tubular adenoma of colon Fracture of right fibula Invasive lobular carcinoma of right breast in female Infiltrating ductal carcinoma of left breast History of malignant neoplasm of both breasts Surgical History S/P total left hip arthroplasty Hx of colonoscopy History of lymph node dissection of left axilla History of lymph node excision History of lumpectomy of left breast History of lumpectomy of right breast Family History Father Cancer of prostate Mother COPD (chronic obstructive pulmonary disease) Sister Breast cancer Paternal Grandmother Breast cancer Brother No problems noted. Sister No problems noted. Son No problems noted. Daughter No problems noted. Social History Housing: House Are you a primary healthcare administrative assistant to a significant other at home: No Do you presently have visiting nurse or other home services: No Alcohol intake: never Patient Tobacco Use Status: Never used Tobacco e-Cigarette/Vaping Use: Never Used Advance Directives Date on File: 03/28/20 service: No Current occupational status: retired Cognitive needs: No Hearing needs: No Vision needs: No Female Reproductive History Menstrual Other: Sees Dr. Ornelas, had a Pap September 2024 with negative findings Questionnaire PHQ-9 Over the last 2 weeks, how often have you been bothered by any of the following problems? 1. Little interest or pleasure in doing things: not at all 2. Feeling down, depressed, or hopeless: not at all 3. Trouble falling or staying asleep, or sleeping too much: not at all 4. Feeling tired or having little energy: not at all 5. Poor appetite or overeating: not at all 6. Feeling bad about yourself - or that you are a failure or have let yourself or your family down: not at all 7. Trouble concentrating on things, such as reading the newspaper or watching television: not at all 8. Moving or speaking so slowly that other people could have noticed. Or the opposite - being so fidgety or restless that you have been moving around a lot more than usual: not at all 9. Thoughts that you would be better off or of hurting yourself in some way: not at all Total score: 0 Depression Screening Interpretation: Negative Depression Screening Done: Yes 20386 - PHQ-9 Billing: Yes Source: Developed by Drs. Jake L. Michelle Christianson Kurt Kroenke and colleagues, with an educational rai from [employer]. Thrive Questionnaire Date Thrive assessed: 10/16/24 I am a: Patient What is your living situation today?: I have a steady place to live Within the past 12 months, did the food you bought not last and you didn't have the money to get more?: Never true Within the past 12 months, did you worry whether your food would run out before you got money to buy more?: Never true Do you have trouble paying for medicines?: No Do you have trouble getting transportation to medical appointments?: No Do you have trouble paying your heating and electricity bill?: No Do you have trouble taking care of your child, family member or friend?: No Do you have trouble with day-to-day activities such as bathing, preparing meals, shopping, managing finances, etc.?: No Are you currently unemployed and looking for a job?: I choose not to answer this question Are you interested in more education?: I choose not to answer this question Please select the resources that you would like help with: None Currently or been in a relationship where the following occur: No concerns reported THRIVE Score: 0 AUDIT C Alcohol Use Questionnaire (AUDIT-C) 1. How often do you have a drink containing alcohol?: Never 3. How often do you have six or more drinks on one occasion?: Never Total Score: 0 TONY-7 AMB Questionnaire TONY-7 Date TONY - 7 assessed: 10/16/24 Feeling nervous, anxious, or on edge: 0 = Not at all Not being able to stop or control worryin = Not at all Worrying too much about different things: 0 = Not at all Trouble relaxin = Not at all Being so restless that it is hard to sit still: 0 = Not at all Becoming easily annoyed or irritable: 0 = Not at all Feeling afraid as if something awful might happen: 0 = Not at all Total TONY-7 score (0-4 normal; 5-9 mild; 10-14 moderate; 15-21 severe): 0 Source: Developed by Michelle Munguia Kurt Kroenke and colleagues, with an educational rai from [employer]. TONY-7 Assessment Billing TONY-7 Assessment Tool: TONY-7 Assessment 63255 Review of Systems Const Denies body aches, Denies fatigue, Denies fever(s), Denies headache(s) and Denies weakness Eyes Details: Goes to [facility] Denies change in vision ENT Denies dizziness, Denies headache(s), Denies nasal congestion, Denies nasal discharge and Denies sore throat Card Denies chest pain, Denies lightheadedness, Denies palpitations and Denies dyspnea Resp Denies chest congestion, Denies cough, Denies dyspnea and Denies wheezing GI Denies abdominal pain, Denies change in bowel habits and Denies heartburn Denies urinary frequency, Denies dysuria and Denies urinary urgency Musc Denies back pain, Denies myalgias, Denies arthralgias and Denies joint swelling Skin/Breast Denies lesions and Denies rash Neuro Denies dizziness, Denies headache(s) and Denies weakness Psych Reports no additional complaints Endo Denies fatigue, Denies polydipsia, Denies polyuria and Denies palpitations [place]/Lymph Denies easy bruising Aller/Immun Denies seasonal rhinorrhea and Denies wheezing Physical exam (Primary Care) Vital Signs: Last Vital Signs Temp 98.3 F 10/16/24 12:44 Pulse 86 10/16/24 12:44 Resp 18 10/16/24 12:44 BP 122/74 10/16/24 12:44 Pulse Ox 96 10/16/24 12:44 Oxygen Delivery Method Room Air 10/16/24 12:44 BMI result Body Mass Index 30.6 Tobacco/Smoking Status: Tobacco use Status Tobacco use date assessed 10/16/24 10/16/24 12:55 Patient Tobacco Use Status Never used Tobacco 10/16/24 12:55 e-Cigarette/Vaping Use Never Used 10/16/24 12:45 PHQ-9: PHQ-9 Score PHQ-9: Total score 0 10/16/24 13:27 Depression Screening Interpretation: Negative Thrive Assessment: Date of Thrive Assessment Date Thrive assessed 10/16/24 10/16/24 12:57 Currently or been in a relationship where the following occur: No concerns reported Advance Care Planning discussion: Completed/Scanned Date of discussion: 10/26/22 Who was present: Patient Forms completed: Health Care Proxy Time spent: 16-45 minutes Actual minutes spent: 16 Const General: no acute distress Nutritional Appearance: obese Orientation/consciousness: patient oriented x3 Limitations: ambulation with cane (Occasionally due to left hip pain) HENMT Ears: hearing grossly normal bilaterally, external ears normal, TM's normal bilaterally and EAC's normal General nose exam: Normal external nose present and No nasal discharge present Mouth: oropharynx normal and moist mucous membranes Eyes General: appearance normal, both eyes and all related structures Conjunctivae: conjunctivae normal Pupils: Equal, round and reactive pupils present EOM: EOMs intact bilaterally Neck Neck: Yes full ROM, Yes no lymphadenopathy and Yes supple Chest Breast/axilla palpation: normal palpation of the breasts Resp Effort & Inspection: normal respiratory effort and able to speak in complete sentences Auscultation: clear to auscultation bilaterally Cardio Rate: regular rate Rhythm: regular rhythm Heart sounds: S1 normal heart sound present and S2 normal heart sound present GI Inspection: Yes normal to inspection Palpation (GI): Soft to palpation, nontender and no masses Auscultation: normal bowel sounds General: Yes deferred (Followed by [facility]) Back/Spine/Pelvis Cervical Spine: cervical ROM normal Thoracic/Lumbar Spine: thoracic and lumbar spine normal to inspection Skin General skin exam: no rashes or lesions noted Neuro General: patient oriented x3, tone normal, Normal light touch and pain sensation and no focal motor deficits Cranial nerves: Yes Equal, round and reactive pupils present Cognition (Neuro): normal cognition Motor exam (neuro): 5/5 motor strength present throughout Extrem General: Yes full ROM, Yes no joint enlargement, Yes no clubbing, cyanosis or edema, Yes no calf tenderness and Yes normal gait Psych Appearance: grossly normal and well kempt Mental Status: mental status grossly normal Speech and movement: Normal speech and movement present Affect: normal affect Results Reviewed Results Reviewed: Name: Rebeca Fernandez Age/Sex: 73/F : 1950 Unit#: [id number] Attend Dr: Kymberly Sanchez MD Re10/14/24 Status: DEP REF Location: [facility] Disch: SPEC : [id number] ELIZABETH: 10/14/24 STATUS: COMP REQ : [id number] RECD: 10/14/[address]: Kymberly Sanchez MD COMP: 10/14/24 ENTERED: 10/14/249018 [facility] DR: ORDERED: Met Prof Fast, AST, ALT, Lipid Panel, Vitamin D 25-OH Test Result Flag Reference Sodium 142 135-145 mmol/L Potassium 4.3 3.3-5.1 mmol/L CL 107 96-108 mmol/L CO2 27 22-29 mmol/L Gap 12 12-20 BUN 14 9-16 mg/dL Creat 0.69 0.5-1.4 mg/dL eGFR > 60 Chronic Kidney Disease: Estimated GFR < 60 mL/min/1.73m2 Severe Kidney Disease: Estimated GFR < 15 mL/min/1.73m2 FBS 103 H 60-99 mg/dL A fasting glucose from 100-125 mg/dl is considered impaired (pre-diabetes). CA 9.5 8.4-10.2 mg/dL AST (GOT) 23 5-31 U/L ALT (GPT) 20 0-31 U/L Triglyceride 101 <150 mg/dL Desirable Triglyceride: less than 150 mg/dL Borderline High Triglyceride 150-199 mg/dL High Triglyceride: 200-499 mg/dL Very High Triglyceride: greater than or equal to 5OO mg/dL Cholesterol 189 <200 mg/dL Desirable Cholesterol: less than 200 mg/dL Borderline High Cholesterol: 200-239 mg/dL High Cholesterol: greater than 239 mg/dL LDL Calculated 120 H <100 mg/dL Desirable LDL: less than 100 mg/dL Near Optimal/Above Optimal LDL: 110-129 mg/dL Borderline High LDL: 130-159 mg/dL High LDL: 160-189 mg/dL Very High LDL: greater than or equal to 190 mg/dL HDL 49 >40 mg/dL Desirable HDL: greater than 40 mg/dL Note: This HDL assay may give artificially low results in patients with liver disease. Vitamin D 25-OH 53.6 >30 ng/mL Health Based Reference Values* < 20 ng/mL Deficient 20-30 ng/mL Insufficient > 30 ng/mL Sufficient Coding Level of Care Code Est Pt Prev Care >65y(56525) Diagnoses Annual visit for general adult medical examination with abnormal findings Z00.01 Essential hypertension I10 Age-related osteoporosis without current pathological fracture M81.0 Osteoporosis type: age-related Presence of current pathological fracture: without current pathological fracture Impaired fasting glucose R73.01 History of breast cancer Z85.3 History of adenomatous polyp of colon Z86.0101 Additional Codes TONY-7 Assessment Billing - TONY-7 Assessment Tool: TONY-7 Assessment 72786 ([id number]) PHQ-9 - 98472 - PHQ-9 Billing: Yes ([id number]) Vital Signs *Quality* - Advance Care Planning discussion: Completed/Scanned ([id number]) Vital Signs *Quality* - Time spent: 16-45 minutes ([id number]) Assessment & Plan Assessment & Plan (1) Annual visit for general adult medical examination with abnormal findings: Code(s): Z00.01 - Encounter for general adult medical examination with abnormal findings Plan: Latest fasting lab results were discussed with patient. Continue with regular dental visit every 6 months and regular eye exams, at least every 2 years. Take adequate calcium in diet and vitamin-D 3 at 2000 IU per cap once a day, in addition to weight-bearing exercises to help maintain good muscle tone and weight control. Up-to-date with her yearly mammogram, as well as getting screening ultrasound, followed by [facility] hematology oncology clinic. Up-to-date with her cervical cancer screening and screening colonoscopy due again in [address] Leija (2) Essential hypertension: Code(s): I10 - Essential (primary) hypertension Category: Medical Plan: Blood pressure at goal of less than 130/80. Continue with current medication. Reinforced importance of following a low sodium diet, getting regular exercise, and lowering stress levels. (3) Osteoporosis: Comment: 2022 bone density scan showed osteoporosis in right femur neck, ordered by Dr. Ornelas Code(s): M81.0 - Age-related osteoporosis without current pathological fracture Category: Medical Qualifiers: Osteoporosis type: age-related Presence of current pathological fracture: without current pathological fracture Qualified Code(s): M81.0 - Age-related osteoporosis without current pathological fracture Plan: Last bone density scan was done [address] Ornelas. Advised optimize calcium and vitamin-D in diet , at least 1200 mg of calcium a day and 800 IU of vitamin-D, advised to limit alcohol consumption, recommended least 30 minutes of moderate intensity exercise 3 days a week along with strength training, repeat another DEXA scan in 2 years (4) Impaired fasting glucose: Code(s): R73.01 - Impaired fasting glucose Category: Medical Plan: Your previous fasting blood sugars were elevated above 100 mg/dL. Impaired glucose metabolism increases the risk for developing diabetes mellitus type 2, as well as heart attack and stroke later on. Lifestyle changes that promotes weight loss, healthy eating habits, and regular exercise are important, and can prevent the progression to diabetes (5) History of breast cancer: Code(s): Z85.3 - Personal history of malignant neoplasm of breast Category: Medical Plan: Patient with history bilateral breast cancer treated with bilateral lumpectomies followed by radiation treatment completed 10 years of antiestrogen therapy, up-to-date with screening mammogram done 05/11/2024 and ultrasound screening on 11/12/2023 , which did not show any concern for malignancy. Followed at [facility] (6) History of adenomatous polyp of colon: Code(s): Z86.0101 - Personal history of adenomatous and serrated colon polyps Category: Medical Plan: Done by Dr. Leija, with presence of adenomatous polyp removed, due again for repeat colonoscopy in 2026 Orders: Orders Vitamin D 25-OH Total 1 Year Z85.3 - Personal history of malignant neoplasm of breast, M81.0 - Age-related osteoporosis without current pathological fracture, R73.01 - Impaired fasting glucose, I10 - Essential (primary) hypertension, Z86.0101 - Personal history of adenomatous and serrated colon polyps, Z86.39 - Personal history of other endocrine, nutritional and metabolic disease Lipid Panel 1 Year Z85.3 - Personal history of malignant neoplasm of breast, M81.0 - Age-related osteoporosis without current pathological fracture, R73.01 - Impaired fasting glucose, I10 - Essential (primary) hypertension, Z86.0101 - Personal history of adenomatous and serrated colon polyps, Z86.39 - Personal history of other endocrine, nutritional and metabolic disease Aspartate Amino Transferase 1 Year Z85.3 - Personal history of malignant neoplasm of breast, M81.0 - Age-related osteoporosis without current pathological fracture, R73.01 - Impaired fasting glucose, I10 - Essential (primary) hypertension, Z86.0101 - Personal history of adenomatous and serrated colon polyps, Z86.39 - Personal history of other endocrine, nutritional and metabolic disease Alanine Aminotransferase 1 Year Z85.3 - Personal history of malignant neoplasm of breast, M81.0 - Age-related osteoporosis without current pathological fracture, R73.01 - Impaired fasting glucose, I10 - Essential (primary) hypertension, Z86.0101 - Personal history of adenomatous and serrated colon polyps, Z86.39 - Personal history of other endocrine, nutritional and metabolic disease Basic Metabolic Panel Fasting 1 Year Z85.3 - Personal history of malignant neoplasm of breast, M81.0 - Age-related osteoporosis without current pathological fracture, R73.01 - Impaired fasting glucose, I10 - Essential (primary) hypertension, Z86.0101 - Personal history of adenomatous and serrated colon polyps, Z86.39 - Personal history of other endocrine, nutritional and metabolic disease Hemoglobin A1c 1 Year Z85.3 - Personal history of malignant neoplasm of breast, M81.0 - Age-related osteoporosis without current pathological fracture, R73.01 - Impaired fasting glucose, I10 - Essential (primary) hypertension, Z86.0101 - Personal history of adenomatous and serrated colon polyps, Z86.39 - Personal history of other endocrine, nutritional and metabolic disease Medications: New ibuprofen 800 mg PO Q12H PRN 60 tabs 0RF muscle pain
--- OUTSIDE RECORDS SUMMARY | 2024-10-16 12:45 | XMS_ITS ---
Author Organization [facility] Address [address] [place] [id number] Care Team Providers Care Conductor Pullman Name Role Phone Laura NUNO, Kymberly Primary Care Provider Samantha Leija Jr, Jozef Rivers REASON FOR VISIT Has some questions for you Encounters Encounter Location Date Provider Diagnosis [facility] [address] [place] [address] 03/15/2024 Jozef Leija Jr Plan Of Treatment No Information Progress Notes * KATHE LEAL[birth year]OB:[birth year] (73 yo F)Acc No.[id number]:03/15/2024 Patient:?KATHE LEAL :1950???Age:73 Y???Sex:Female Address:[address] [place] [address], [address] Subjective: * Chief Complaints: * ???Has some questions for yo u * Medical History:? * Surgical History:? * Hospitalization/Major Diagno stic Procedure:? * Medications:? Objective: Assessment: Plan: * Treatment: * Procedure Codes:? * true * Date:? Generated for Printi ng/Faxing/eTransmitting on:?10/16/2024 12:45 PM EDT
--- OUTSIDE RECORDS SUMMARY | 2024-10-16 12:45 | XMS_ITS | Encounter Summary ---
Author Organization [facility] Address [address] [place] [phone] Care Team Providers Care Application Packaging Specialist Name Role Phone Kymberly Sanchez MD Primary Care Provider [phone] Encounter Details Date Type Department Care Team (Latest Contact Info) Description 09/28/[address] [facility] Lab [address] [facility] [employer] [place] [address] Domingo Ornelas MD [address] [address] Encounter for gynecological examination (general) (routine) without abnormal findings Social History Tobacco Use Types Packs/Day Years Used Date Smoking Tobacco: Never Smokeless Tobacco: Never Alcohol Use Standard Drinks/Week Comments No 0 (1 standard drink = 0.6 oz pur e alcohol) Comments Unknown Sex and Gender Information Value Date Recorded Sex Assigned at Not on file Legal Sex Female 12:04 AM EST Gender Identity Not on file Sexual Orientation Not on file documented as of this encounter Plan of Treatment Not on file documented as of this encounter Procedures Procedure Name Priority Date/Time Associated Diagnosis Comments PAP SMEAR Routine 09/27/2024 12:00 AM EDT Encounter for gynecological examination (general) (routine) without abnormal findings documented in this encounter Results * Pap smear (09/27/2024 12:00 AM EDT) Interpretation Negative for intraepithelial lesion or malignancy 10/02/2024 1:39 PM EDT [facility] General Categorization Negative 10/02/2024 1:39 PM EDT [facility] Other Findings Atrophy 10/02/2024 1:39 PM EDT [facility] Specimen Adequacy Satisfactory for evaluation 10/02/2024 1:39 PM EDT [facility] Pap Methodology Liquid Based Pap Test 10/02/2024 1:39 PM EDT [facility] Disclaimer The Pap test is a screening test which carries an inherent false negative rate. These test results should be correlated with the patient's clinical findings and history. This Pap test was processed using an automated screening system. Technical cytopathology services provided by [facility], at [address] [place] [id number] (CLIA # [id number]/Alyssa Sanabria MD, Cd Mixer Helper.) 10/02/2024 1:39 PM [facility] Console Pap Interpretation Reported 10/02/2024 1:39 PM [facility] Brushing/Spatula Cervix uteri structure / Unknown 09/27/2024 09/28/2024 6:21 AM EDT Domingo Ornelas MD LAB CYTOLOGY ORDERABLES Final Result [facility] [address] [place] [address], documented in this encounter Visit Diagnoses Diagnosis Encounter for gynecological examination (general) (routine) without abnormal findings documented in this encounter Care Teams Application Packaging Specialist Relationship Specialty Start Date End Date Kymberly Sanchez MD [address] [place] [address] PCP - General Internal Medicine 11/20/19 documented as of this encounter
--- OUTSIDE RECORDS SUMMARY | 2024-10-16 12:45 | XMS_ITS | Clinical Summary ---
Author Organization [facility] Address [address] [place] [address] Phone Care Team Providers Care Maintenance And Operations Supervisor Name Role Phone Kymberly Sanchez MD Primary Care Provider [phone] Encounters Date Type Department Care Team Description 09/28/2024 Lab Requisition [facility] - Main Lab [address] [facility] [place] [address] Domingo Ornelas MD Encounter for gynecological examination (general) (routine) without abnormal findings from Last 3 Months Social History Tobacco Use Types Packs/Day Years Used Date Smoking Tobacco: Never Smokeless Tobacco: Never Alcohol Use Standard Drinks/Week Comments No 0 (1 standard drink = 0.6 oz pur e alcohol) Comments Unknown Sex and Gender Information Value Date Recorded Sex Assigned at Not on file Legal Sex Female 12:04 AM EST Gender Identity Not on file Sexual Orientation Not on file Obstetrics History Plan of Treatment Health Maintenance Due Date Last Done Comments Breast Cancer Screening 1950 DTaP,Tdap,and Td Vaccines (1 - Tdap) 11/27/1971 Zoster Vaccines (1 of 2) 2002 Pneumococcal Vaccine: 50+ Ye ars (2 of 2 - PCV) 06/21/2021 06/21/2020 COVID-19 Vaccine (1 - 2023-2 5 season) 2024 Cholesterol Screening (Lipid Panel) 09/28/2024 Colorectal Cancer Screening: Colonoscopy 09/28/2024 Depression Screening 09/28/2024 Falls Risk Assessment 09/28/2024 Hepatitis C Screening 09/28/2024 Osteoporosis Screening (Bone Density Screening) 09/28/2024 Social Influencers of Health Screening 09/28/2024 Influenza Vaccine (Season Ended) 2025 02/16/20 20 RSV Immunization Adult Patie nts (1 - 1-dose 75+ series) 11/27/2027 HIB Vaccines Aged Out No longer eligi ble based on patient's age to complete this topic HPV Vaccines Aged Out No longer eligi ble based on patient's age to complete this topic Hepatitis A Vaccines Aged Out No long er eligible based on patient's age to complete this topic Hepatitis B Vaccines Aged Out No long er eligible based on patient's age to complete this topic IPV Vaccines Aged Out No longer eligi ble based on patient's age to complete this topic MMR Vaccines Aged Out No longer eligi ble based on patient's age to complete this topic Meningococcal ACWY Vaccine Aged Out N o longer eligible based on patient's age to complete this topic Meningococcal B Vaccine Aged Out No l onger eligible based on patient's age to complete this topic RSV Immunization Patients Un vargas 20 months Aged Out No longer eligible b ased on patient's age to complete this topic Varicella Vaccines Aged Out No longer eligible based on patient's age to complete this topic Procedures Procedure Name Priority Date/Time Associated Diagnosis Comments PAP SMEAR Routine 09/27/2024 12:00 AM EDT Encounter for gynecological examination (general) (routine) without abnormal findings from Last 3 Months Results * Pap smear (09/27/2024 12:00 AM EDT) Interpretation Negative for intraepithelial lesion or malignancy 10/02/2024 1:39 PM EDT [facility] General Categorization Negative 10/02/2024 1:39 PM EDT [facility] Other Findings Atrophy 10/02/2024 1:39 PM EDT [facility] Specimen Adequacy Satisfactory for evaluation 10/02/2024 1:[address] [facility] Pap Methodology Liquid Based Pap Test 10/02/2024 1:[address] [facility] Disclaimer The Pap test is a screening test which carries an inherent false negative rate. These test results should be correlated with the patient's clinical findings and history. This Pap test was processed using an automated screening system. Technical cytopathology services provided by [facility], at [address] [place] [address] (IA # [id number]/Alyssa Sanabria MD, Merchandising Internship.) 10/02/2024 1:39 PM EDT [facility] ([facility] Console Pap Interpretation Reported 10/02/2024 1:39 PM EDT [facility] Brushing/Spatula Cervix uteri structure / Unknown 09/27/2024 09/28/2024 6:21 AM EDT us Domingo Ornelas MD LAB CYTOLOGY ORDERABLES Final Result [facility] ([facility]) [facility] [address] [place] [address], [place] [phone] from Last 3 Months Insurance [facility]) Care Teams Maintenance And Operations Supervisor Relationship Specialty Start Date End Date Kymberly Sanchez MD [address] [place] [address] PCP - General Internal Medicine 11/20/19
--- OUTSIDE RECORDS SUMMARY | 2024-10-16 12:46 | XMS_ITS ---
Author Organization [facility] Address [address] [place] [address] Care Team Providers Care Stoker Installer Name Role Phone Laura NUNO, Kymberly Primary Care Provider Samantha Leija Jr Jozef Unavailable Results Component Value Reference Range Notes GI PANEL Reviewed date:03/16/2024 08:53:30 AM Interpretation: Performing Lab:[facility], [address] [place] [address] Notes/Report: Campylobacter Not Detected Not Detect. Plesiomonas [...] is performed by Multiplexed PCR, utilizing the [employer] Array. REASON FOR VISIT Diarrhea Problems Problem Type SNOMED Code ICD Code Onset Dates Problem Status W/U Status Risk Notes Problem 00773827 Diarrhea, unspecified type (R19.7) Active confirmed Encounters Encounter Location Date Provider Diagnosis [facility] [address] [place] [address] 03/13/2024 Jozef Leija Jr Diarrhea, unspecified type R19.7 Assessments Encounter Date Diagnosis (ICD Code) Assessment Notes Treatment Notes Treatment Clinical Notes Section Notes 03/13/2024 Diarrhea, unspecified type (ICD-10 - R19.7) Plan Of Treatment Pending Test Test Name Order Date STOOL WBC 03/13/2024 OVA & PARASITES (O&P) 03/13/2024 CDiff Gene PCR 03/13/2024 Progress Notes * KATHE LEALDOB:[birth year] (73 yo F)Acc No.[id number]:03/13/2024 Patient:?KATHE LEAL Michelle :1950???Age:73 Y???Sex:Female Address:[address] [place] [address], [address] Subjective: * Chief Complaints: * ???Diarrhea * Medical History:? * Surgical History:? * Hospitalization/Major Diagno stic Procedure:? * Medications:? Objective: Assessment: * Assessment: 1.?Diarrhea, unspecified typ e - R19.7? Plan: * Treatment: * Procedure Codes:? * true * Date:? Generated for Kale alanis/Bismark/Kacie on:?10/16/2024 12:46 PM EDT
--- OUTSIDE RECORDS SUMMARY | 2024-10-16 12:46 | XMS_ITS | Data Portability ---
Author Organization [facility], [facility] Address [address] [place] [address] Care Team Providers Care Flare Man Name Role Phone DK ALEXANDER Primary Care Provider Assessment Encounter Date Assessment Date Assessment LastModified [...] well aligned, and located. There is good scientology of leg length and offset without loosening [...] significant worsening of her right hip pain Not available 09/17/2023 13:14:28 Plan of Treatment Reminders Order Date Submit Date Provider Last Modified By Organization Details Last Modified Time Details Appointments None recorded. Lab None recorded. Referral None recorded. Procedures None recorded. Surgeries None recorded. Imaging XR, hip, unilateral, 2 or 3 view - LTHR annual AB 2023 024 [facility]ro[facility], [address], [place], [address], 4 16:57:00 Medication Orders amoxicillin 500 mg tablet 2023 024 abrothers 14 [facility][id number], [address] [facility] [place], [address], 16:57:00 Patient TargetsNo targets recorded. 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 Procedures Surgical History None recorded. Imaging Results Imaging Date Name Status LastModified by Organiz [facility] Details LastModified Time 08/06/2022 imaging/diag nostic result [...] Name and Address Organization Details Recorded Time 02958 acetamino phen / oxycodone medicatio n Not available Not available Not available 08/09/20232013 89038 3 RxNorm Aller gyRea ction : 'Naus ea/Vo mitin g/Violeta rrhea '; Not Available [facility] 4 13:10:35 17626 Demerol medicatio n Not available Not available Not available 08/09/20232013 02690 1 RxNorm Aller gyRea ction : 'Naus ea/Vo mitin g/Violeta rrhea '; Not Available [facility] 4 13:10:35 Medications Name Sig Start Date [...] Updated DateTime 09/17/2023 175.26 cm 29.5 kg/m2 75744.47 g AYAKA BOX [facility] 09/17/2023 10:50:20 Social History None recorded. Functional Status None recorded. Mental Status None recorded. Family History Nothing Reported. Medical History No medical history recorded. Gynecological HistoryNo gynecological history recorded. Obstetrics History GPAL:G 0 P 0 0 0 0 Past Encounters Encounter ID Performer Location Encounter Start Date Encounter Closed Date Diagnosis/Indication Diagnosis SNOMED-CT Code Diagnosis ICD10 Code Diagnosis Note [id number] MD [facility] [address] [place] [address] 09/17/2023 09:50:58 10/08/2023 10:21:36 History of total replacement of left hip joint 1737863557 808410 Z96.642 Health Concerns Section Related Observation LastModified by Organization Detai ls LastModified Time None Recorded Concern Status LastModified by Organization Details LastModified Time None Recorded Advance Directives Directive None Recorded Payers Encounter Date Sequence Insurance Name Policy Number Policy Suero Covered Member ID Suero Member ID Guarantor Name 09/17/2023 1 [place]) [id number] Rebeca Jesus [id number] Rebeca Jesus Notes Date Note Type [...] Ratliff MD [address], [place], [address], [facility] 09/17/2023 13:14:39 OBGyn Episode No OBEpisode recorded.
--- OUTSIDE RECORDS SUMMARY | 2024-10-16 12:46 | XMS_ITS ---
Author Organization [facility] Address [address] [place] [address] Care Team Providers Care Unit Controller Name Role Phone Laura NUNO, Kymberly Primary Care Provider Samantha Leija Jr, Jozef Rivers [phone] REASON FOR VISIT result Medications Medication SIG (Take, Route, Fr equency, Duration) Notes Start Date End Date Status Tinidazole 500 MG 4 tablets with food Orally Once 03/13/2024 Active Encounters Encounter Location Date Provider Diagnosis [facility] [address] [place] [address] 03/13/2024 Jozef Leija Jr Plan Of Treatment Medication Medication Name Sig Start Date Stop Date Notes Tinidazole 500 MG 4 tablets with food Orally Once 03/13/20 24 Progress Notes * KATHE LEALDOB:[birth year] (73 yo F)Acc No.[id number]:03/13/2024 Patient:?KATHE LEAL :1950???Age:73 Y???Sex:Female Address:[address] [place] [address], [address] * Refills? Start Tinidazole Tablet, 500 MG, Orally, 4, 4 tablets with food, Once, Refills=0 Subjective: * Chief Complaints: * ???Result * Medical History:? * Surgical History:? * Hospitalization/Major Diagno stic Procedure:? * Medications:? Objective: Assessment: Plan: * Treatment: * Procedure Codes:? * true * Date:? Generated for Kale alanis/Bismark/Santaitting on:?10/16/2024 12:45 PM EDT
--- OUTSIDE RECORDS SUMMARY | 2024-10-16 12:46 | XMS_ITS | Data Portability ---
Author Organization [facility] Address [address] [place] [address] Assessment No assessment recorded. Plan of Treatment [...] Organization Details Recorded Time Supraventricul ar tachycardia 7660481 Active 2017 Babsmelony cardenas [facility] 8 14:43:26 Osteoarthritis of hip 621635795 Active 2017 left hip Babs cardenas [facility] 8 14:43:39 Malignant tumor of breast 015463804 Active 2017 Right and left Babs cardenas [facility] 8 14:44:35 Problem Notes None recorded. Procedures Surgical History Date Name Laterality Status Provider Name and Address Organization Details Recorded Time 08/06/19 18 Date of Last Pap Smear completed Sunita Herrera NP, [address] [facility], [place], [address], [facility] 02/21/2018 09:09:51 06/07/19 12 Colonoscopy completed Babsmelony Huang [facility] 02/18/2018 14:46:12 Imaging Results Imaging [...] Not available Not available Not available 02/18/2018 75951 3 RxNorm Babs Huang [facility] 8 14:40:08 Medications Name Sig [...] Updated DateTime 8 175.26 cm 31.1 kg/m2 80794.9 1 g 62 /min 96 % 96 % 130 mm[Hg] 70 mm[Hg] Babs Huang [facility] 8 09:01:14 Social History Question Answer Notes LastModified by Organizat ion Details LastModified Time Tobacco Smoking Status Never Smoker Not Available [facility] 04/09/2020 03:36:24 What Was The Date Of Your Most Recent Tobacco Screening? 02/21/2018 [id number] Information not available 04/09/2020 Sex: Unknown Functional Status None recorded. Mental Status None recorded. Family History Relationship Description Onset Age of this Age Resolved Age Notes LastModified by Organization Details LastModified Time Mother Chronic obstructive pulmonary disease 82 lympho bobby ribera Not available 02/21/2018 09:08:08 Father Malignant neoplastic disease 85 ? colon leanderkawsmarshall Not available 02/21/2018 09:09:01 Sister Malignant tumor of breast escharleswsmarshall Not available 2017 09:09:22 Medical History Condition Response Coronary Artery Disease N Gout N Kidney Stones N Blood Diseases N Hyperthyroidism N Blood Transfusion N Breast Cancer Y Hypothyroidism N Lung Disease N Depression N COPD N Defects or Inherited Disease N Difficulty Swallowing N Anesthesia Complications Y Anxiety Disorder N Meniere's disease N Muscle, Joint, or Bone Problems N [...] exposure N Constipation N Mental Illness N Diabetes N Ovarian Cancer N Seizures/Epilepsy N Tuberculosis N Congestive Heart Failure (CHF) N Eczema Y Abuse/Domestic Violence N Diverticulitis N Asthma N Reflux/GERD Y Hepatitis N [...] toxoid, unspecified formulation 6 completed Babs cardenas [facility] 02/18/2018 14:45:39 Tdap 6 completed Sunita Herrera NP, [address] [place] [address], [address], [facility] 02/21/2018 09:22:07 Influenza, split virus, quadrivalent, preservative 8 completed Babs cardenas [facility] 03/01/2018 11:18:46 Past Encounters Encounter ID Performer Location Encounter Start Date Encounter Closed Date Diagnosis/Indication Diagnosis SNOMED-CT Code Diagnosis ICD10 Code Diagnosis Note [id number] [facility] [address] [facility],[place] [address] 02/21/2018 08:51:28 02/21/2018 10:37:04 Adult health examination 614641912 Z00.00 Active or passive immunization 203668085 Z23 discussed flu vaccine Osteoarthritis of hip 23 6105715 M16.12 Supraventr icular tachycardia 6887512 I47.1 stable with atenolol Health Concerns Section Related Observation LastModified by Organization Detai ls LastModified Time None Recorded Concern Status LastModified by Organization Details LastModified Time None Recorded Advance Directives Directive None Recorded Payers Encounter Date Sequence Insurance Name Policy Number Policy Suero Covered Member ID Suero Member ID Guarantor Name 02/21/2018 1 AINSLEY: PAUL (PPO) [id number] Domingo Edin [id number] Rebeca Edin Notes Date Note Type [...] Vision:no vision problems Sunita Herrera NP, [address] [place] [address], [place], [address], [facility] 02/21/2018 10:30:23 OBGyn Episode No OBEpisode recorded.
--- OUTSIDE RECORDS SUMMARY | 2024-10-16 12:46 | XMS_ITS | Patient Health Record ---
Author Organization [facility] Address [address] [place] [address] Care Team Providers Care Escape Wheel Tooth Cutter Name Role Phone Laura NUNO, Kymberly Primary Care Provider Jozef Serrano Jr Unavailable Allergies Allergen (clinical drug ingredient) Drug/Non Drug Allergy documented on EMR Reaction Allergy Type Onset Date Status acetaminophen / oxycodone Percocet Unknown Drug Allergy Active Results Component Value Reference Range Notes GI PANEL Reviewed date:03/16/2024 08:53:30 AM Interpretation: Performing Lab:[facility], [address] [place] [address] Notes/Report: Campylobacter Not Detected Not Detect. Plesiomonas [...] is performed by Multiplexed PCR, utilizing the [employer] Array. Leukocytes Stool Qualitative Reviewed date:03/15/2024 07:53:13 AM Interpretation: Performing Lab:[facility], [address] [place] [address] Notes/Report: Leukocytes Stool Qualitative NEGATIVE NEGATIVE Ova and Parasite Reviewed date:03/21/2024 02:45:17 PM Interpretation: Performing Lab:[facility], [address] [place] [address] Notes/Report: Ova and Parasite SEE NOTE OVA AND PARASITES, CONC AND PERM SMEAR Micro Number: [id number] Test Status: Final Specimen Source: Stool Specimen Quality: Adequate CONCENTRATION 1: No ova or parasites seen TRICHROME 1: No ova or parasites seen Routine Ova and Parasite exam may not detect some parasites that occasionally cause diarrheal illness. Cryptosporidium Antigen and/or Cyclospora Isospora Exam may be ordered to detect these parasites. For additional information, please refer to https://education.Brandwatch.iPrint/faq/FBC890 (This link is being provided for informational/ educational purposes only.) THIS TEST WAS PERFORMED AT: [facility] [address] [address] GINA LIPSCOMB MD CDiff Gene PCR Reviewed date:03/15/2024 07:53:06 AM Interpretation: Performing Lab:[facility], [address] [place] [address], [place] [address] Notes/Report: CDiff Gene PCR NEGATIVE Negative If [...] Problem Status W/U Status Risk Notes Problem 773899991 Colon cancer screening (Z12.11) Active confirmed Problem 83983787 Diarrhea, unspecified type (R19.7) Active confirmed Problem 591569040 Encntr long-term NSAID use (Z79.1) Active confirmed Encounters Encounter Location Date Provider Diagnosis [facility] [address] [place] [phone] 03/13/2024 Jozef Leija Jr Diarrhea, unspecified type R19.7 [facility] [address] [place] [address] 03/13/2024 Jozef Leija Jr [facility] [address] [place] [phone] 03/15/2024 Jozef Leija Jr Assessments Encounter Date [...] Insured Coverage Start Date Coverage End Date [facility] [address] [place], [place] [id number] KATHE LEAL Self - patient is the insured Medical (General) History Medical History History ICD Code high blood pressure Breast cancer Osteopenia Colon polyps, colonoscopy 10/21, tubular adenoma five-year followup Surgical History Surgery Date(Month/Year) bilateral breast lumpectomies x [phone] 4
--- OUTSIDE RECORDS SUMMARY | 2024-10-16 12:46 | XMS_ITS | Clinical Summary ---
Author Organization [facility] Address [address] [place] [address] Care Team Providers Care Passenger Tire Builder Name Role Phone Kymberly Sanchez MD Primary Care Provider [phone] Allergies Active Allergy Reactions Criticality Noted Date [...] age to complete this topic Care Teams Passenger Tire Builder Relationship Specialty Start Date End Date Kymberly Sanchez MD [address] [place] [address] PCP - General Internal Medicine 11/20/19
== END 2024-10-16 13:30 | disposition home or self-care (01) ==
LOC: HO.HMCC 12:19
PROVIDERS: PCP Internal Medicine; Visit Provider Internal Medicine
DX: Z00.01 Encounter for general adult medical examination with abnormal findings (principal); I10 Essential (primary) hypertension; M81.0 Age-related osteoporosis without current pathological fracture; R73.01 Impaired fasting glucose; Z85.3 Personal history of malignant neoplasm of breast; Z86.0101 Personal history of adenomatous and serrated colon polyps; Z00.00 Encounter for general adult medical examination without abnormal findings

== ENCOUNTER → 2024-10-16 12:18 | Outpatient (BNVA) | payer BC, SELFPAY | PROVIDERS: PCP Internal Medicine; Visit Provider Internal Medicine | DX: Z00.01 Encounter for general adult medical examination with abnormal findings (principal); I10 Essential (primary) hypertension; M81.0 Age-related osteoporosis without current pathological fracture; R73.01 Impaired fasting glucose; Z85.3 Personal history of malignant neoplasm of breast; Z86.0101 Personal history of adenomatous and serrated colon polyps | CPT/HCPCS: 96127 ==

== ENCOUNTER 2024-11-22 09:49 | Outpatient (REF) | payer BC, SELFPAY ==
--- NOTE | ~2024-11-22 | MM_ITS ---
EXAMINATION: BONE DENSITOMETRY CLINICAL INDICATION: Postmenopausal.. COMPARISON: DEXA scan 11/10/2018 and 11/05/2016 TECHNIQUE: Using a [employer] dual-energy x-ray absorptiometry was performed of the lumbar spine and right femur. The images are of good technical quality. Summary results are attached. FINDINGS: AP SPINE L1-L4: BMD 1.026 g/cm2, Z-score -0.5, T-score -1.3, Osteopenia. Previous T score -1.1 RIGHT FEMUR, NECK: BMD 0.730 g/cm2, Z-score -1.3, T-score -2.2, Osteopenia. Previous left femur neck T score -1.7 IDENTIFIED RISK FACTORS: Rheumatoid arthritis. HISTORY OF FRACTURE: Fracture of tibia MEDICATIONS: Vitamin D and calcium supplements. MM/XR DEXA axial skeleton IMPRESSION: 1. DIAGNOSIS: Osteopenia based on the lowest T-score value of -2.2 in the right hip applying World Health Organization criteria. 2. 10-YEAR FRACTURE RISK PREDICTION, FRAX: Major osteoporotic fracture 18.6% and hip 3.7% 3. Treatment Recommendations: NOF guidelines recommend consideration for treatment in postmenopausal women and men age 50 and older presenting with the following: -A hip or vertebral (clinical or morphometric) fracture. -T-score less than or equal to -2.5 at the femoral neck or spine after appropriate evaluation to exclude secondary causes. -Low bone mass at the hip or spine and a 10-year fracture probability by FRAX of greater than or equal to 3% for hip fracture or greater than or equal to 20% for major osteoporotic fracture based on the [place] adapted WHO algorithm. 4. All treatment decisions require clinical judgment and consideration of individual patient factors, including patient preferences, comorbidities, previous drug use, risk factors not captured in the fracture mottle and possible under overestimation of fracture risk by fractures. Additional medical evaluation for secondary causes of lobe bone mineral density may be appropriate FUTURE SCAN RECOMMENDATION: People with diagnosed cases of osteoporosis or at high risk for fracture should have regular bone mineral density tests. For patients eligible for Medicare, routine testing is allowed once every 2 years. The testing frequency can be increased to one year for patients who have rapidly progressing disease, those who are receiving or discontinuing medical therapy to restore bone mass, or have additional risk factors. Electronically signed by: Kalia Sahu MD 11/24/2024 07:38 AM EDT RP
--- OUTSIDE RECORDS SUMMARY | 2024-11-22 10:54 | XMS_ITS | Clinical Summary ---
Author Organization 299 [facility] Address [address] [place] [address] Phone Care Team Providers Care Ammonia Box Tender Name Role Phone Kymberly Sanchez MD Primary Care Provider Encounters Date Type Department Care Team Description 09/28/2024 Lab Requisition [facility] - Main Lab [address] [facility] [employer] [place] [address] Domingo Ornelas MD Encounter for [...] lesion or malignancy 10/02/2024 1:39 PM EDT [facility] General Categorization Negative 10/02/2024 1:39 PM EDT [facility] Other Findings Atrophy 10/02/2024 1:39 PM EDT [facility] Specimen Adequacy Satisfactory for evaluation 10/02/2024 1:39 PM [facility] Pap Methodology Liquid Based Pap Test 10/02/2024 1:39 PM [facility] Disclaimer The Pap test is a screening test which carries an inherent false negative rate. These test results should be correlated with the patient's clinical findings and history. This Pap test was processed using an automated screening system. Technical cytopathology services provided by [facility], at [address] [place] [address] (IA # [id number]/Alyssa Sanabria MD, Telecommunications Switch Technician.) 10/02/2024 1:39 PM EDT [facility] ([facility] Console Pap Interpretation Reported 10/02/2024 1:39 PM EDT [facility] Brushing/Spatula Cervix uteri structure / Unknown 09/27/2024 09/28/2024 6:21 AM EDT us Domingo Ornelas MD LAB CYTOLOGY ORDERABLES Final Result [facility] ([facility]) [facility] [address] [place] [address], [place] [phone] from Last 3 Months Insurance [facility]) Care Teams Ammonia Box Tender Relationship Specialty Start Date End Date Kymberly Sanchez MD [address] [place] [address] PCP - General Internal Medicine 11/20/19
== END 2024-11-22 09:50 | disposition home or self-care (01) ==
LOC: HO.MAMMO 09:49
PROVIDERS: PCP Internal Medicine; Visit Provider Obstetrics & Gynecology
DX: Z13.820 Encounter for screening for osteoporosis (principal); Z78.0 Asymptomatic menopausal state
CPT/HCPCS: 77080

== ENCOUNTER → 2024-11-22 10:00 | Outpatient (BNV) | payer BC, SELFPAY | PROVIDERS: PCP Internal Medicine; Visit Provider Radiology Diagnostic Radiology | DX: E28.39 Other primary ovarian failure (principal) | CPT/HCPCS: 77080 ==